=== PATIENT | male | born 1950 | race Caucasian/White ===

== ENCOUNTER 2018-03-31 13:00 | Outpatient (RCR) | payer MEDICARE, OTHER ==
[~2018-03-31 13:00] MED LIST: AMLODIPINE BESYL5 MG PO; AMOX TR-K CLV1 EAC2 PO; CARISOPRODOL350 MG PO; CLOPIDOGREL75 MG PO; HYDROCODON-ACE1 EAC3 PO; LEVOCETIRIZINE D5 MG PO; METFORMIN HCL500 MG PO; METOPROLOL SUCC25 MG PO; MICARDIS HCT 81 EAC1 PO; PRAVASTATIN SOD40 MG PO
== END 2018-04-01 ==
LOC: PT 13:00
PROVIDERS: ATTEND Psychiatry & Neurology Neurology
DX: G61.81 Chronic inflammatory demyelinating polyneuritis (principal); M24.571 Contracture, right ankle; M62.81 Muscle weakness (generalized); R26.2 Difficulty in walking, not elsewhere classified; R29.6 Repeated falls
CPT/HCPCS: 97110 ×3; 97139; 97140 ×3; 97163; G8978; G8979

== ENCOUNTER → 2018-04-09 | Outpatient (CLI) | payer MEDICARE, OTHER | LOC: NM 10:20 | PROVIDERS: ATTEND Internal Medicine Cardiovascular Disease | DX: I25.119 Atherosclerotic heart disease of native coronary artery with unspecified angina pectoris (principal) | CPT/HCPCS: 78452; 93017; A9502 ==

== ENCOUNTER → 2018-05-02 | Outpatient (RCR) | payer MEDICARE, OTHER ==
[~2018-05-02] MED LIST changes: +REGADENOSON 0.4 MG/5 ML SYR IV ONE
== END ==
LOC: PT 04-04 13:26
PROVIDERS: ATTEND Psychiatry & Neurology Neurology
DX: G61.81 Chronic inflammatory demyelinating polyneuritis (principal); M24.571 Contracture, right ankle; R26.2 Difficulty in walking, not elsewhere classified; R29.6 Repeated falls; M62.81 Muscle weakness (generalized)
CPT/HCPCS: 97110 ×7; 97140 ×7; G8978; G8979

== ENCOUNTER 2018-05-30 13:00 | Outpatient (RCR) | payer MEDICARE, OTHER ==
[~2018-05-30 13:00] MED LIST changes: -REGADENOSON 0.4 MG/5 ML SYR IV ONE
== END 2018-06-01 ==
LOC: PT 13:00
PROVIDERS: ATTEND Psychiatry & Neurology Neurology
DX: G61.81 Chronic inflammatory demyelinating polyneuritis (principal); M24.571 Contracture, right ankle; R26.2 Difficulty in walking, not elsewhere classified; R29.6 Repeated falls; M62.81 Muscle weakness (generalized)
CPT/HCPCS: 97110 ×4; 97116; 97140 ×5; 97164; G8978; G8979 ×2; G8980

== ENCOUNTER 2018-07-14 10:59 | Emergency (ER) | payer MEDICARE, OTHER ==
[~2018-07-14] VITALS: Ht 180.3 cm; Wt 90.7 kg
--- OUTSIDE RECORDS SUMMARY | 2018-07-14 11:02 | XMS REPORT | Clinical Summary ---
Author Author [facility] [employer] [facility] Address Unknown Phone Unavailable Care Team Providers Care Video Software Engineer Name Role Phone PCP Unavailable Allergies Comments Active Allergy Reactions Severity Noted Date hypertension Hydroxyzine Hcl Other (See Medium 05/23/2018 Comments) myalgia Atorvastatin Other (See Medium 05/23/2018 Comments) Medications End Date Status Medication Sig Dispensed Refills Start Date Active glimepiride (AMARYL) 4 MG Take 4 mg by 0 tablet mouth 2 (two) times daily. Active metFORMIN (GLUCOPHAGE) Take 1,000 mg 0 1000 MG tablet by mouth 2 (two) times daily with breakfast and dinner. Active clopidogrel (PLAVIX) 75 Take 75 mg by 0 mg tablet mouth daily. Active pravastatin (PRAVACHOL) Take 80 mg by 0 40 MG tablet mouth nightly . Active amLODIPine (NORVASC) 5 MG Take 5 mg by 0 tablet mouth nightly . Active metoprolol (TOPROL-XL) 25 Take 25 mg by 0 MG 24 hr tablet mouth 2 (two) times daily. Active gabapentin (NEURONTIN) Take 300 mg 0 300 MG capsule by mouth 4 (four) times daily. Active traMADol (ULTRAM) 50 mg Take 100 mg 0 tablet by mouth 2 (two) times daily . Active carisoprodol (SOMA) 350 Take 350 mg 0 MG tablet by mouth 2 (two) times daily as needed . Active levocetirizine (XYZAL) 5 Take 5 mg by 0 MG tablet mouth every evening. Active immun glob G/gly/gluc/IgA Inject 0 0-50 (GAMMAGARD S-D, IGA intravenously < 1 MCG/ML, IV) every 3 (three) months . Active Problems Problem Noted Date CAD (coronary artery disease) 05/27/2018 Carotid stenosis 05/27/2018 Resolved Problems Problem Noted Date Resolved Date MONIK (renal artery stenosis) 05/27/2018 05/28/2018 Encounters Care Team Description Date Type Specialty Timothy Childers MD L CATH & PCI 05/27/2018 Surgery Timothy Childers MD 05/27/2018 Hospital Cardiology - Encounter 05/28/2018 after 07/13/2017 Social History Date Tobacco Use Types Packs/Day Years Used Current Every Day Smoker 0.5 Smokeless Tobacco: Former Chew, Snuff User Comments: Quit chew/snuff 30 years ago Alcohol Use Drinks/Week oz/Week Comments Yes Very Rarely, once every few years Sex Assigned at Date Recorded Not on file Industry Job Start Date Occupation Not on file Not on file Not on file Travel End Travel History Travel Start No recent travel history available. Last Filed Vital Signs Time Taken Vital Sign Reading 05/28/2018 8:00 AM CDT Blood Pressure 136/65 05/28/2018 8:00 AM CDT Pulse 63 05/28/2018 8:00 AM CDT Temperature 36.7 C (98 F) 05/28/2018 8:00 AM CDT Respiratory Rate 18 05/28/2018 8:00 AM CDT Oxygen Saturation 95% - Inhaled Oxygen - Concentration 05/28/2018 8:00 AM CDT Weight 87.6 kg (193 lb 1.6 oz) 05/27/2018 11:35 AM CDT Height 177.8 cm (5' 10") 05/28/2018 8:00 AM CDT Body Mass Index 27.71 Plan of Treatment Not on file Implants Device Identifier Shelf Expiration Date Model / Serial / Lot Implanted Type Area [facility] [id number] 10/28/2018 [id number] / / [id number] Promus Premier Cardiovasc N/A: Heart [place] Implanted: Qty: 1 on 05/27/2018 by Timothy Elliott MD [id number] 03/15/2019 [id number] / / [id number] Promus Premier Cardiovasc N/A: Heart [place] Implanted: Qty: 1 on 05/27/2018 by Timothy Elliott MD Procedures Comments Procedure Name Priority Date/Time Associated Diagnosis VASCULAR DIAGRAM -SCAN 05/29/2018 1:30 PM CDT REPORT OF PROCEDURE - 05/29/2018 ENDOSCOPY SCAN 1:30 PM CDT VASCULAR DIAGRAM -SCAN 05/29/2018 1:30 PM CDT VASCULAR DIAGRAM -SCAN 05/29/2018 1:30 PM CDT VASCULAR DIAGRAM -SCAN 05/29/2018 1:30 PM CDT RHYTHM STRIP - SCAN 05/29/2018 1:30 PM CDT CARDIAC CATH REPORT - 05/29/2018 SCAN 1:30 PM CDT POCT-GLUCOSE METER Routine 05/28/2018 8:02 AM CDT CBC W/PLT COUNT & AUTO Routine 05/28/2018 DIFFERENTIAL 3:43 AM CDT CBC W/PLT COUNT & AUTO Routine 05/28/2018 DIFFERENTIAL 3:43 AM CDT BASIC METABOLIC PANEL (7) Routine 05/28/2018 3:43 AM CDT POCT-GLUCOSE METER Routine 05/27/2018 6:43 PM CDT L CATH & PCI 05/27/2018 Atherosclerosis of [place] 5:38 PM CDT coronary artery with angina pectoris, unspecified whether [place] or transplanted heart (HCC) Case Notes POP6 NONE POSS PCI POCT-ACT Routine 05/27/2018 5:23 PM CDT POCT-GLUCOSE METER Routine 05/27/2018 1:48 PM CDT POCT-GLUCOSE METER Routine 05/27/2018 12:12 PM CDT after 07/13/2017 Results * VASCULAR DIAGRAM -SCAN (05/29/2018 1:30 PM CDT) Only the most recent of 4 results within the time period is included. Narrative Performed At * EKG-SCANNED (05/29/2018 1:30 PM CDT) Narrative Performed At * RHYTHM STRIP - SCAN (05/29/2018 1:30 PM CDT) Narrative Performed At * CARDIAC CATH REPORT - SCAN (05/29/2018 1:30 PM CDT) Narrative Performed At * POC-Glucose meter (05/28/2018 8:02 AM CDT) Only the most recent of 4 results within the time period is included. POC-Glucose Meter 289 (H)Comment: TESTED AT 70 - 110 mg/dL [facility] [address] [facility] [address] Specimen Blood Performing Organization Address City/State/Zipcode Phone Number [place] [phone] [place] [address] [facility] * CBC with platelet count + automated diff (05/28/2018 3:43 AM CDT) WBC 6.6 3.5 - 10.5 K/L [facility] RBC 3.69 (L) 4.63 - 6.08 M/L [facility] Hemoglobin 11.1 (L) 13.7 - 17.5 GM/DL [facility] Hematocrit 33.9 (L) 40.1 - 51.0 % [facility] MCV 91.9 79.0 - 92.2 fL [facility] MCH 30.1 25.7 - 32.2 pg [facility] MCHC 32.7 32.3 - 36.5 GM/DL [facility] RDW 13.8 11.6 - 14.4 % [facility] Platelets 214 150 - 450 K/CU MM [facility] MPV 10.9 9.4 - 12.4 fL [facility] nRBC 0 0 - 0 /100 WBC [facility] % Neutros 62 % [facility] % Lymphs 24 % [facility] % Monos 9 % [facility] % Eos 3 % [facility] % Baso 1 % [facility] # Neutros 4.09 1.78 - 5.38 K/L [facility] # Lymphs 1.60 1.32 - 3.57 K/L [facility] # Monos 0.59 0.30 - 0.82 K/L [facility] # Eos 0.22 0.04 - 0.54 K/L [facility] # Baso 0.07 0.01 - 0.08 K/L [facility] Immature 1 0 - 1 % [facility] Granulocytes-[facility] Specimen Blood - Arm, Left Performing Organization Address City/[facility]/Zipcode Phone Number [address] [address] [facility] * Basic Metabolic Panel (05/28/2018 3:43 AM CDT) Sodium 135 (L) 136 - 145 meq/L [facility] Potassium 4.0 3.5 - 5.1 meq/L [facility] Chloride 101 98 - 107 meq/L [facility] CO2 30 (H) 22 - 29 meq/L [facility] BUN 22 (H) 7 - 21 mg/dL [facility] Creatinine 1.15 0.57 - 1.25 mg/dL [facility] Glucose 272 (H) 70 - 105 mg/dL [facility] Calcium 8.9 8.4 - 10.2 mg/dL [facility] EGFR 63Comment: ESTIMATED GFR IS mL/min/1.73 sq m [facility] NOT ACCURATE CREATININE [facility] CLEARANCE IN PREDICTING GLOMERULAR FILTRATION RATE. ESTIMATED GFR IS NOT APPLICABLE FOR DIALYSIS PATIENTS. Specimen Blood - Arm, Left Performing Organization Address City/State/Zipcode Phone Number [facility] [address] [place] [address] [facility] * POC ACTIVATED CLOTTING TIME (05/27/2018 5:23 PM CDT) Activated Clotting Time 323Comment: TESTED AT [facility] sec [facility] [address] [facility] [address] [facility] Specimen Blood Performing Organization Address City/State/Zipcode Phone Number [facility] [address] [place] [address] MEDICAL CENTER after 07/13/2017 Insurance Payer Benefit Subscriber ID Type Phone Address Plan / Group MEDICARE MEDICARE A xxxxxxxxxxx Medicare B MCR SUPPLEMENT/INDIVIDUAL AETNA xxxxxxxxxx SENIOR SUPPLEMENT [place] Advance Directives For more information, please contact: [address] [address] Date Inactivated Comments Code Status Date Activated 05/28/2018 1:32 PM Full Code 05/27/2018 11:55 AM This code status was determined by: Patient
--- OUTSIDE RECORDS SUMMARY | 2018-07-14 11:02 | XMS REPORT | Clinical Summary ---
Author Author [facility] Address Unknown Phone Unavailable Care Team Providers Care Vehicle Return Associate Name Role Phone Laurie Maravilla MD PCP Allergies No Known Allergies Medications End Date Status Medication Sig Dispensed Refills Start Date Active metFORMIN (GLUCOPHAGE) Take 1,000 mg 0 1,000 mg tablet by mouth 2 (two) times a day with meals. Active metoprolol succinate XL Take 25 mg by 0 (TOPROL-XL) 25 mg 24 hr mouth 2 (two) tablet times a day. Active glimepiride (AMARYL) 4 MG Take 4 mg by 0 tablet mouth 2 (two) times a day. Active Problems Problem Noted Date Gait disorder 05/24/2017 Essential hypertension 04/02/2017 CIDP (chronic inflammatory demyelinating polyneuropathy) 03/28/2017 Hyponatremia 03/24/2017 Fall 03/23/2017 DM type 2, uncontrolled, with neuropathy 03/23/2017 Weakness of both lower extremities 03/22/2017 Family History Medical History Relation Name Comments Hypertension Father Hypertension Mother Hypothyroidism Mother Stroke Mother Hypertension Son Relation Name Status Comments Father Mother multiple strokes, and a family history of HBP Son Social History Date Tobacco Use Types Packs/Day Years Used Started: 03/22/1970 Current Every Day Smoker Cigarettes 0.5 47 Tobacco Cessation: Ready to Quit: No Alcohol Use Drinks/Week oz/Week Comments No Sex Assigned at Date Recorded Not on file Industry Job Start Date Occupation Not on file Not on file Not on file Travel End Travel History Travel Start No recent travel history available. Last Filed Vital Signs Not on file Plan of Treatment Health Maintenance Due Date Last Done Comments DIABETIC RETINAL EYE EXAM 1950 URINE MICROALBUMIN 1960 COLON CANCER SCREENING 2000 SHINGRIX VACCINE (1 of 2) 2000 ZOSTER VACCINE 2010 PNEUMOCOCCAL 12/02/2015 POLYSACCHARIDE VACCINE AGE 65 AND OVER PNEUMOCOCCAL-13 12/02/2015 INFLUENZA VACCINE 04/02/2018 DIABETIC FOOT EXAM 04/04/2018 04/04/2017, 04/04/2017 Implants Device Identifier Shelf Expiration Date Model / Serial / Lot Implanted Type Area Manufactur er Stent, Other Stent, Other Stent, Urology Stent, Urology Results Not on fileafter 07/13/2017 Insurance Payer Benefit Subscriber ID Type Phone Address Plan / Group MEDICARE MEDICARE xxxxxxxxxx Medicare [place] PART A AND B [employer] [place] xxxxxxxxxx Commercial L [employer] Advance Directives Patient has advance care planning documents on file. For more information, devon dhillon contact: Clint Lao [address] [place] [address]
--- OUTSIDE RECORDS SUMMARY | 2018-07-14 11:02 | XMS REPORT ---
Author Author [facility] Address Unknown Phone Unavailable Care Team Providers Care Horse Show Manager Name Role Phone Roro LUU Unavailable Unavailable OVI LUU Unavailable Unavailable Problems This patient has no known problems. Allergies, Adverse Reactions, Alerts This patient has no known allergies or adverse reactions. Medications This patient has no known medications. Results Test Description Test Time Test Comments Text Results Atomic Results Result Comments POCT-GLUCOSE METER 2018-05-28 09:53:00 POC-GLUCOSE METER (BEAKER) (test egzf=9315) 289 mg/dL 70-110 TESTED AT [facility] [address] [place] [address] BASIC METABOLIC [id number] 04:53:00* Test Item Value Reference Range Comments SODIUM (BEAKER) (test fmdv=582) 135 meq/L 136-145 POTASSIUM (BEAKER) (test mvns=469) 4.0 meq/L 3.5-5.1 CHLORIDE (BEAKER) (test blhn=219) 101 meq/L 98-107 CO2 (BEAKER) (test ucbv=473) 30 meq/L 22-29 BLOOD UREA NITROGEN (BEAKER) (test tarm=558) 22 mg/dL 7-21 CREATININE (BEAKER) (test kxne=758) 1.15 mg/dL 0.57-1.25 GLUCOSE RANDOM (BEAKER) (test jxay=184) 272 mg/dL 70-105 CALCIUM (BEAKER) (test msov=909) 8.9 mg/dL 8.4-10.2 EGFR (BEAKER) (test doxq=1040) 63 mL/min/1.73 sq m ESTIMATED GFR IS NOT ACCURATE CREATININE CLEARANCE IN PREDICTING GLOMERULAR FILTRATION RATE. ESTIMATED GFR IS NOT APPLICABLE FOR DIALYSIS PATIENTS. CBC W/PLT COUNT & AUTO [id number] 04:38:00* Test Item Value Reference Range Comments WHITE BLOOD CELL COUNT (BEAKER) (test finr=433) 6.6 K/ L 3.5-10.5 RED BLOOD CELL COUNT (BEAKER) (test buod=561) 3.69 M/ L 4.63-6.08 HEMOGLOBIN (BEAKER) (test qfuc=678) 11.1 GM/DL 13.7-17.5 HEMATOCRIT (BEAKER) (test ajjx=862) 33.9 % 40.1-51.0 MEAN CORPUSCULAR VOLUME (BEAKER) (test eahm=426) 91.9 fL 79.0-92.2 MEAN CORPUSCULAR HEMOGLOBIN (BEAKER) (test ljrm=433) 30.1 pg 25.7-32.2 MEAN CORPUSCULAR HEMOGLOBIN CONC (BEAKER) (test bfmf=741) 32.7 GM/DL 32.3-36.5 RED CELL DISTRIBUTION WIDTH (BEAKER) (test ymyb=511) 13.8 % 11.6-14.4 PLATELET COUNT (BEAKER) (test tscu=201) 214 K/CU MM 150-450 MEAN PLATELET VOLUME (BEAKER) (test jvzz=829) 10.9 fL 9.4-12.4 NUCLEATED RED BLOOD CELLS (BEAKER) (test ieqh=695) 0 /100 WBC 0-0 NEUTROPHILS RELATIVE PERCENT (BEAKER) (test kzpw=449) 62 % LYMPHOCYTES RELATIVE PERCENT (BEAKER) (test mcqz=270) 24 % MONOCYTES RELATIVE PERCENT (BEAKER) (test limj=248) 9 % EOSINOPHILS RELATIVE PERCENT (BEAKER) (test rncb=414) 3 % BASOPHILS RELATIVE PERCENT (BEAKER) (test wfgu=812) 1 % NEUTROPHILS ABSOLUTE COUNT (BEAKER) (test btrn=148) 4.09 K/ L 1.78-5.38 LYMPHOCYTES ABSOLUTE COUNT (BEAKER) (test jknd=080) 1.60 K/ L 1.32-3.57 MONOCYTES ABSOLUTE COUNT (BEAKER) (test anen=604) 0.59 K/ L 0.30-0.82 EOSINOPHILS ABSOLUTE COUNT (BEAKER) (test nicz=625) 0.22 K/ L 0.04-0.54 BASOPHILS ABSOLUTE COUNT (BEAKER) (test haea=611) 0.07 K/ L 0.01-0.08 IMMATURE GRANULOCYTES-RELATIVE PERCENT (BEAKER) (test fwyo=6960) 1 % 0-1 POCT-GLUCOSE [id number] 22:57:00* Test Item Value Reference Range Comments POC-GLUCOSE METER (BEAKER) (test wmof=8242) 147 mg/dL 70-110 TESTED AT [address] [address] [id number] 17:31:00* Test Item Value Reference Range Comments ACTIVATED CLOTTING TIME (BEAKER) (test nvlz=264) 323 sec TESTED AT [address] [address] POCT-GLUCOSE [id number] 13:50:00* Test Item Value Reference Range Comments POC-GLUCOSE METER (BEAKER) (test scqk=9525) 292 mg/dL 70-110 TESTED AT [address] [address] POCT-GLUCOSE [id number] 12:14:00* Test Item Value Reference Range Comments POC-GLUCOSE METER (BEAKER) (test ryhu=3131) 328 mg/dL 70-110 TESTED AT [address] [address] Stress Test - Treadmill [id number] 11:56:00 [place] [address] Patient Name : PRANAV TORIBIO MR #: [id number] : 1950 Age/Sex: 67/M Adm Physician : OVI LUU MD Admit Date : Location : [place] Room/Bed : REPORT: Cardiology Report DATE OF STUDY: April 09, 2018 NUCLEAR GATED MYOCARDIAL PERFUSION SCAN Thank you, Ck Luu, for this nuclear interpretation consultation. A nuclear g ated myocardial perfusion scan performed as per protocol at [facility]. Dr. Ovi Luu supervised the test. Lexiscan injected 0.4 mg intravenously as a stress agent, and Cardiolite injected 10 mCi for r esting protocol and 31 mCi for stress protocol. IMPRESSION 1. The left ve ntricular ejection fraction is 60%. 2. No ischemia or scar noted. 3. Erin l study. Job#: [id number] EV Signature Date Dictated By: MARY KYLE MD Transcribed By: SMEDS on 04/18/18 <Electronically signed by MARY KYLE MD><<Signature on File>>05/02/181952 COPY TO:
[2018-07-14] MEDS ORDERED: KETOROLAC TROMETHAMINE 30 MG/ML VIAL IV STA (11:40)
[2018-07-14] MEDS ORDERED: SODIUM CHLORIDE 0.9% 1000ML 1,000 ML IV STA (11:40)
[2018-07-14 11:54] LABS: BASOPHILS # (AUTO) 0.1 (0.0-0.1); BASOPHILS % 0.6 % (0.0-1.0); EOSINOPHILS % 0.2 % (0.0-6.0); HEMATOCRIT 41.5 % (38.2-49.6); HEMOGLOBIN 14.1 g/dL (14.0-18.0); LYMPHOCYTES # (AUTO) 0.6 (1.0-3.2); LYMPHOCYTES % 4.5 % (18.0-39.1); MEAN CORPUSCULAR HEMOGLOBIN 30.2 pg (28-32); MEAN CORPUSCULAR VOLUME 88.9 fL (81-99); MONOCYTES # (AUTO) 0.4 (0.2-0.8); MONOCYTES % 2.6 % (4.4-11.3); NEUTROPHILS # (AUTO) 12.1 (2.1-6.9); NEUTROPHILS % 91.6 % (38.7-80.0); PLATELET COUNT 290 x10e3/uL (140-360); RED BLOOD COUNT 4.67 x10e6/uL (4.3-5.7); RED CELL DISTRIBUTION WIDTH 13.5 % (11.7-14.4)
[2018-07-14 12:20] LABS: ALBUMIN 3.6 g/dL (3.5-5.0); ALBUMIN/GLOBULIN RATIO 0.7 (0.8-2.0); ANION GAP 18.9 mmol/L (8-16); CALCIUM 9.1 mg/dL (8.4-10.2); CREATININE, SERUM 1.49 mg/dL (0.72-1.25); POTASSIUM 5.9 mmol/L (3.5-5.1)
[2018-07-14 12:34] LABS: CLARITY,URINE SL CLOUDY (CLEAR); COLOR,URINE YELLOW (YELLOW); LEUKOCYTE ESTERASE ,URINE NEGATIVE (NEGATIVE); NITRITE,URINE NEGATIVE (NEGATIVE); PROTEIN,URINE DIPSTICK 2+ (NEGATIVE)
[2018-07-14 12:35] LABS: BILIRUBIN,URINE NEGATIVE (NEGATIVE); KETONES,URINE 1+ (NEGATIVE); URINE UROBILINOGEN 0.2 mg/dL (0.2 - 1)
[2018-07-14 12:44] LABS: BACTERIA,URINE FEW /HPF; EPITHELIAL CELLS,URINE RARE /LPF; RBC,URINE >50 /HPF (0-5); WBC,URINE (MAN) 0-5 /HPF (0-5)
[2018-07-14] MEDS ORDERED: INSULIN REGULAR, HUMAN 100 UNIT/1 ML 3ML VIAL IV ONE (13:15)
[2018-07-14] MEDS ORDERED: SOD POLYSTYRENE SULFONATE SUSP 15 GM/60 ML BTL PO ONE (13:30)
[2018-07-14] MEDS ORDERED: ONDANSETRON HCL INJ 2 MG/ML VIAL IV ONE (14:05)
[2018-07-14] MEDS ORDERED: HYDROMORPHONE 2MG/ML 2 MG/ML ML IV ONE (14:15)
--- NOTE | 2018-07-14 14:35 | Diagnostic Imaging Report ---
EXAM: CT Abdomen and Pelvis WITHOUT contrast INDICATION: Right flank pain COMPARISON: None. TECHNIQUE: Abdomen and pelvis were scanned utilizing a multidetector helical scanner from the lung base to the pubic symphysis without administration of IV contrast. Absence of intravenous contrast decreases sensitivity for detection of focal lesions and vascular pathology. Coronal and sagittal reformations were obtained. Routine protocol was performed. RADIATION DOSE: Total DLP: 530 mGy*cm Estimated effective dose: (DLP x 0.015 x size factor) mSv COMPLICATIONS: None FINDINGS: LINES and TUBES: None. LOWER THORAX: Patchy dependent atelectasis. Coronary atherosclerosis. There is a 2 mm solid thyroid nodule in the left lower lobe on series 189, image 25. HEPATOBILIARY: No focal hepatic lesions. No biliary ductal dilation. GALLBLADDER: No radio-opaque stones or sludge. No wall thickening. SPLEEN: No splenomegaly. PANCREAS: No focal masses or ductal dilatation. ADRENALS: Mildly thick walled adrenal glands, left greater than right, without discrete nodule. KIDNEYS/URETERS: Bilateral kidneys have a horizontal rotation. There is right perinephric stranding. Mild right hydronephrosis with dilation of the renal pelvis but decompressed proximal ureter. No definite obstructing stone is visualized. Lack of contrast limits evaluation for mass. Punctate 2 mm nonobstructive right mid pole renal stone on series 199, image 78 and nonobstructive 2 mm right lower pole stone on image 92. Subcentimeter right mid pole hypodensities too small to characterize, but likely represents a cyst. The left kidney appears atrophic. Subcentimeter renal hypodensities are too small to characterize likely represent cysts. There is an 8 mm left mid pole hyperdense lesion measuring 100 Hounsfield units, likely hemorrhagic cyst. GI TRACT: No abnormal distention, wall thickening, or evidence of bowel obstruction. Appendix is normal. PELVIC ORGANS/BLADDER: Punctate 2 mm calcification likely within the bladder near the right UVJ on series 199, image 169. Mildly thick-walled bladder, which may reflect underdistention. LYMPH NODES: No lymphadenopathy. VESSELS: Extensive atherosclerotic calcifications of the abdominal aorta and branch vessels. PERITONEUM / RETROPERITONEUM: No free air. Small amount of right perinephric free fluid. BONES: No acute bony findings. Degenerative changes of the visualized spine. SOFT TISSUES: Fat-containing right inguinal hernia. IMPRESSION: Likely 2 mm stone in the bladder near the right UVJ with mild right hydronephrosis and perinephric stranding. Findings likely represent recent passage of right ureteral stone into the bladder. Punctate 2 mm non-obstructive right renal stones. Signed by: Dr. Napoleon Gong MD on 07/14/2018 2:31 PM
[2018-07-14 15:46] LABS: ANION GAP 19.9 mmol/L (8-16); BLOOD UREA NITROGEN 20 mg/dL (7-26); BUN/CREATININE RATIO 17 (6-25); CALCIUM 8.6 mg/dL (8.4-10.2); CARBON DIOXIDE 23 mmol/L (22-29); CHLORIDE 99 mmol/L (98-107); CREATININE, SERUM 1.17 mg/dL (0.72-1.25); EST GLOMERULAR FILTRATION RATE > 60 ML/MIN (60-); GLUCOSE 320 mg/dL (74-118); POTASSIUM 3.9 mmol/L (3.5-5.1); SODIUM 138 mmol/L (136-145)
== END 2018-07-14 16:30 | disposition home or self-care (01) ==
LOC: ER 10:59
DX: R10.31 Right lower quadrant pain (principal); M54.5 Low back pain; R11.0 Nausea; R31.9 Hematuria, unspecified; N13.2 Hydronephrosis with renal and ureteral calculous obstruction; E87.5 Hyperkalemia
CPT/HCPCS: 36415; 74176; 80048; 80053; 81001; 82150; 83690; 85025; 87086; 93005; 99284; J1170; J1817; J1885; J2405; J7030

== ENCOUNTER → 2019-01-16 | Outpatient (CLI) | payer MEDICARE, OTHER ==
[~2019-01-16] MED LIST changes: +IOPAMIDOL 370 MG/ML 200 ML INFUS..BTL INJ ONE; +SODIUM CHLORIDE 0.9% 100 ML 100 ML ONE; +SODIUM CHLORIDE 0.9% 250ML 250 ML ONE; +SODIUM CHLORIDE 0.9% 500ML 500 ML ONE
[2019-01-16 10:43] LABS: CREATININE, SERUM 1.43 mg/dL (0.72-1.25)
[2019-01-16 11:04] LABS: ANION GAP 14.1 mmol/L (8-16); CALCIUM 9.8 mg/dL (8.4-10.2); CREATININE, SERUM 1.42 mg/dL (0.72-1.25); POTASSIUM 4.1 mmol/L (3.5-5.1)
--- NOTE | 2019-01-16 15:03 | Diagnostic Imaging Report ---
CTA NECK HISTORY: Carotid stenosis COMPARISON: None. TECHNIQUE: CTA of the neck was performed with intravenous iodine based contrast. Coronal, sagittal, 3-D, and oblique maximum intensity projection reformations were created. One or more of the following dose reduction techniques were used: Automated exposure control, adjustment of the mA and/or kV according to patient size, and/or utilization of iterative reconstruction technique. DISCUSSION: If present, any cervical carotid stenosis will be measured as a percentage relative to the benton artery distal to the stenosis (NASCET). There are minimal calcifications in the aortic arch and proximal great vessels. Right Carotid: Moderate calcified plaque at the right carotid bulb causes less than 50% focal stenosis in the proximal right internal carotid artery. Left Carotid: Severe calcified plaque at the left carotid bulb causes up to 70 % focal stenosis in the proximal left internal carotid artery. The upper left cervical internal carotid artery is tortuous. Right vertebral artery: At least mild focal stenosis at the right vertebral artery ostium due to focal calcified plaque. The cervical right vertebral artery is otherwise patent and without abnormality. Left vertebral artery: At least mild focal stenosis at the left vertebral artery ostium due to focal calcified plaque. Mild scattered calcification in the left vertebral artery V2 and V3 segments do not cause significant stenosis. The intracranial arterial vasculature is partially visualized. Mild calcification is seen in the intradural vertebral arteries and carotid siphons. Additional findings: There are mild to moderate degenerative changes throughout the spine. The left mastoid air cells are mildly sclerotic and underpneumatized. IMPRESSION: 1. Severe left carotid bulb calcified plaque causes up to 70% focal stenosis in the proximal left internal carotid artery. 2. Moderate right carotid bulb calcified plaque without significant stenosis (less than 50%). 3. Mild scattered calcified atherosclerosis in the bilateral vertebral arteries. Signed by: Dr. Kike Roldan M.D. on 01/16/2019 3:00 PM
== END ==
LOC: CT 09:43
PROVIDERS: ATTEND Internal Medicine Cardiovascular Disease
DX: G45.9 Transient cerebral ischemic attack, unspecified (principal); I65.8 Occlusion and stenosis of other precerebral arteries
CPT/HCPCS: 36415; 70498; 80048; 82565; 83036; 84152; 84402; 84520; 96360; J7040; J7050; Q9967

== ENCOUNTER → 2019-05-26 | Outpatient (CLI) | payer MEDICARE, OTHER ==
[~2019-05-26] MED LIST changes: -IOPAMIDOL 370 MG/ML 200 ML INFUS..BTL INJ ONE; -SODIUM CHLORIDE 0.9% 100 ML 100 ML ONE; -SODIUM CHLORIDE 0.9% 250ML 250 ML ONE; -SODIUM CHLORIDE 0.9% 500ML 500 ML ONE
--- NOTE | 2019-05-26 15:13 | Diagnostic Imaging Report ---
EXAMINATION: CHEST 2 VIEWS INDICATION: Chronic cough COMPARISON: None FINDINGS: LINES/TUBES:None LUNGS:The lungs are well-inflated. No focal consolidation or pulmonary edema. PLEURA:No pleural effusion or pneumothorax. MEDIASTINUM:The cardiomediastinal silhouette appears normal in size and shape. Atherosclerotic calcifications of the aorta. BONES/SOFT TISSUES:No acute osseous injury. ABDOMEN:No free air under the diaphragm. IMPRESSION: No focal pneumonia or pulmonary edema. Signed by: Franklyn Solomon MD on 05/26/2019 3:09 PM
== END ==
LOC: RAD 14:27
PROVIDERS: ATTEND Internal Medicine
DX: R05 Cough (principal); F17.200 Nicotine dependence, unspecified, uncomplicated
CPT/HCPCS: 71046

== ENCOUNTER 2021-03-15 12:28 | Inpatient (IN) | payer MEDICARE, OTHER ==
[~2021-03-15] VITALS: Ht 180.3 cm; Wt 86.4 kg
[2021-03-15] MEDS ORDERED: MORPHINE SULFATE INJ 4 MG/ML INJ 1ML IV PRN (14:00)
[2021-03-15] MEDS ORDERED: ASPIRIN 81 MG CHEW TAB PO ONE (14:00)
[2021-03-15] MEDS ORDERED: MORPHINE SULFATE INJ 2 MG/ML SYR IV PRN (14:00)
[2021-03-15] MEDS ORDERED: Vancomycin IV 1 GM in SODIUM CHLORIDE 0.9% 250ML 250 ML IV ONE (14:00)
[2021-03-15] MEDS: SODIUM CHLORIDE 0.9% 1000ML 1,000 ML IV SCH ×2 (14:00→22:26)
[2021-03-15] MEDS ORDERED: ONDANSETRON HCL INJ 2MG/ML 2ML 2 MG/ML VIAL IV PRN (14:00)
[2021-03-15 16:13] LABS: BASOPHILS % 0.4 % (0.0-1.0); EOSINOPHILS # (AUTO) 0.4 (0.0-0.4); EOSINOPHILS % 3.2 % (0.0-6.0); HEMATOCRIT 30.8 % (38.2-49.6); HEMOGLOBIN 9.8 g/dL (14.0-18.0); LYMPHOCYTES # (AUTO) 1.7 (1.0-3.2); LYMPHOCYTES % 15.1 % (18.0-39.1); MEAN CORPUSCULAR HEMOGLOBIN 27.5 pg (28-32); MEAN CORPUSCULAR HGB CONC 31.8 g/dL (31-35); MEAN CORPUSCULAR VOLUME 86.3 fL (81-99); MONOCYTES # (AUTO) 0.7 (0.2-0.8); MONOCYTES % 6.1 % (4.4-11.3); NEUTROPHILS # (AUTO) 8.2 (2.1-6.9); NEUTROPHILS % 74.7 % (38.7-80.0); PLATELET COUNT 367 x10e3/uL (140-360); RED BLOOD COUNT 3.57 x10e6/uL (4.3-5.7); RED CELL DISTRIBUTION WIDTH 17.9 % (11.7-14.4)
[2021-03-15 16:35] LABS: CALCIUM 8.2 mg/dL (8.4-10.2)
[2021-03-15 16:50] LABS: ALBUMIN 2.9 g/dL (3.5-5.0); ALBUMIN/GLOBULIN RATIO 0.8 (0.8-2.0); CREATININE, SERUM 1.54 mg/dL (0.72-1.25)
[2021-03-15] MEDS: CLINDAMYCIN 600MG / 50ML 50 ML IV SCH (17:00)
[2021-03-15 17:02] LABS: CREATINE KINASE MB 1.2 ng/mL (0-5.0)
[2021-03-15 18:17] VITALS: BP 147/72
[2021-03-15 19:00] VITALS: BP 156/66
[2021-03-15 19:29] VITALS: BP 147/72
[2021-03-15 20:00] VITALS: BP 156/66
[2021-03-15] MEDS ORDERED: XARELTO10 MG PO (20:15)
[2021-03-15] MEDS ORDERED: SIMETHICONE80 MG PO (20:15)
[2021-03-15] MEDS ORDERED: AMANTADINE100 MG PO (20:15)
[2021-03-15] MEDS ORDERED: FUROSEMIDE40 MG PO (20:15)
[2021-03-15] MEDS ORDERED: TRAZODONE HCL50 MG PO (20:15)
[2021-03-15] MEDS ORDERED: CYMBALTA30 MG (20:15)
[2021-03-15] MEDS ORDERED: ASPIRIN81 MG PO (20:15)
[2021-03-15] MEDS ORDERED: DOCUSATE SODIU100 MG PO (20:15)
[2021-03-15] MEDS ORDERED: ZETIA10 MG PO (20:15)
[2021-03-15] MEDS ORDERED: ZINC-22050 MG PO (20:15)
[2021-03-15] MEDS ORDERED: GABAPENTIN300 MG PO (20:15)
[2021-03-15] MEDS ORDERED: LISINOPRIL10 MG PO (20:15)
[2021-03-15] MEDS ORDERED: ASCORBIC ACID500 M2 PO (20:15)
[2021-03-15] MEDS ORDERED: METHYLPHENIDATE10 MG PO (20:15)
[2021-03-15] MEDS ORDERED: MELATONIN3 MG PO (20:15)
[2021-03-15] MEDS ORDERED: NOVOLIN N100 UNIT/1 ×2 (20:19)
[2021-03-15 23:53] VITALS: BP 135/66
[2021-03-16] VITALS (7 sets, daily range): BP systolic 130–165; BP diastolic 48–69
[2021-03-16] MEDS: CLINDAMYCIN 600MG / 50ML 50 ML IV SCH ×3 (01:10→16:20)
[2021-03-16 05:45] LABS: BASOPHILS % 0.5 % (0.0-1.0); EOSINOPHILS # (AUTO) 0.4 (0.0-0.4); EOSINOPHILS % 4.5 % (0.0-6.0); HEMATOCRIT 28.9 % (38.2-49.6); HEMOGLOBIN 9.1 g/dL (14.0-18.0); LYMPHOCYTES # (AUTO) 1.1 (1.0-3.2); LYMPHOCYTES % 13.4 % (18.0-39.1); MEAN CORPUSCULAR HEMOGLOBIN 27.6 pg (28-32); MEAN CORPUSCULAR HGB CONC 31.5 g/dL (31-35); MEAN CORPUSCULAR VOLUME 87.6 fL (81-99); MONOCYTES # (AUTO) 0.6 (0.2-0.8); MONOCYTES % 6.5 % (4.4-11.3); NEUTROPHILS # (AUTO) 6.4 (2.1-6.9); NEUTROPHILS % 74.6 % (38.7-80.0); PLATELET COUNT 336 x10e3/uL (140-360); RED CELL DISTRIBUTION WIDTH 17.8 % (11.7-14.4)
[2021-03-16] MEDS: SODIUM CHLORIDE 0.9% 1000ML 1,000 ML IV SCH ×3 (05:53→23:07)
[2021-03-16 06:23] LABS: ALBUMIN 2.7 g/dL (3.5-5.0); ALBUMIN/GLOBULIN RATIO 0.6 (0.8-2.0); CALCIUM 8.7 mg/dL (8.4-10.2); CREATININE, SERUM 1.23 mg/dL (0.72-1.25)
[2021-03-16 06:50] LABS: CREATINE KINASE MB 1.7 ng/mL (0-5.0)
[2021-03-16] MEDS ORDERED: DEXTROSE 50% SYRINGE 50 ML IV PRN (07:15)
[2021-03-16] MEDS: INSULIN LISPRO 100 UNIT/1 ML 3ML VIAL SQ SCH ×4 (07:59→21:00)
[2021-03-16] MEDS ORDERED: RIVAROXABAN 10 MG TABLET PO SCH (09:00)
[2021-03-16] MEDS ORDERED: BALSAM PERU/CASTOR OIL 60 GM OINT...G. TP SCH (09:00)
[2021-03-16] MEDS ORDERED: MUPIROCIN 2% OINT 22 GM TUBE TOP SCH (09:00)
[2021-03-16] MEDS: ASPIRIN 81 MG CHEW TAB PO SCH (09:21)
[2021-03-16] MEDS: DULOXETINE HCL 30 MG DELAYED RELEASE PEG SCH (09:21)
[2021-03-16] MEDS: SIMETHICONE 80 MG CHEW PO SCH ×3 (09:22→21:00)
[2021-03-16] MEDS: LISINOPRIL 10 MG TAB PO SCH (09:22)
[2021-03-16] MEDS: FUROSEMIDE 20 MG TAB PO SCH (09:22)
[2021-03-16] MEDS: TRAZODONE HCL 50 MG TAB PO SCH (09:22)
[2021-03-16] MEDS: AMLODIPINE BESYLATE 5 MG TAB PO SCH (09:22)
[2021-03-16] MEDS: DOCUSATE SODIUM 100 MG CAP PO SCH ×2 (09:22→16:20)
[2021-03-16] MEDS: GABAPENTIN 300 MG CAP PO SCH ×2 (09:22→16:20)
[2021-03-16] MEDS: METHYLPHENIDATE HCL 10 MG TAB PO SCH ×2 (09:23→16:20)
[2021-03-16] MEDS: ZINC SULFATE 220 MG CAP PO SCH (09:23)
[2021-03-16] MEDS: AMANTADINE HCL 100 MG CAP PO SCH (09:23)
[2021-03-16] MEDS: ASCORBIC ACID 500 MG TAB PO SCH (09:23)
[2021-03-16] MEDS: EZETIMIBE 10 MG TAB PO SCH (09:23)
[2021-03-16 12:22] LABS: % IRON SATURATION 24 % (15-50); IRON 47 ug/dL (65-175); TOTAL IRON BINDING CAPACITY 192 ug/dL (261-478); TRANSFERRIN 137 mg/dL (174-364)
[2021-03-16 14:12] LABS: CREATINE KINASE MB 1.8 ng/mL (0-5.0)
[2021-03-16] MEDS: METOPROLOL SUCCINATE 25 MG TAB XL PO SCH (21:00)
[2021-03-17] VITALS: BP 127/75
[2021-03-17] MEDS: CLINDAMYCIN 600MG / 50ML 50 ML IV SCH ×3 (01:00→17:00)
[2021-03-17 04:00] VITALS: BP 165/69
[2021-03-17 05:38] LABS: BASOPHILS % 0.5 % (0.0-1.0); EOSINOPHILS # (AUTO) 0.4 (0.0-0.4); EOSINOPHILS % 5.2 % (0.0-6.0); HEMOGLOBIN 8.7 g/dL (14.0-18.0); LYMPHOCYTES # (AUTO) 1.5 (1.0-3.2); LYMPHOCYTES % 18.1 % (18.0-39.1); MEAN CORPUSCULAR HEMOGLOBIN 27.4 pg (28-32); MEAN CORPUSCULAR HGB CONC 31.1 g/dL (31-35); MEAN CORPUSCULAR VOLUME 88.3 fL (81-99); MONOCYTES # (AUTO) 0.6 (0.2-0.8); MONOCYTES % 7.2 % (4.4-11.3); NEUTROPHILS # (AUTO) 5.5 (2.1-6.9); NEUTROPHILS % 68.5 % (38.7-80.0); PLATELET COUNT 326 x10e3/uL (140-360); RED BLOOD COUNT 3.17 x10e6/uL (4.3-5.7); RED CELL DISTRIBUTION WIDTH 17.6 % (11.7-14.4)
[2021-03-17 06:03] LABS: ALBUMIN 2.5 g/dL (3.5-5.0); ALBUMIN/GLOBULIN RATIO 0.6 (0.8-2.0); CALCIUM 8.7 mg/dL (8.4-10.2); CREATININE, SERUM 1.07 mg/dL (0.72-1.25)
[2021-03-17] MEDS: INSULIN LISPRO 100 UNIT/1 ML 3ML VIAL SQ SCH ×4 (07:30→21:50)
[2021-03-17 07:49] VITALS: BP 162/72
[2021-03-17] MEDS: METHYLPHENIDATE HCL 10 MG TAB PO SCH ×2 (09:00→17:00)
[2021-03-17] MEDS: SIMETHICONE 80 MG CHEW PO SCH ×3 (09:00→21:50)
[2021-03-17] MEDS: AMLODIPINE BESYLATE 5 MG TAB PO SCH (09:00)
[2021-03-17] MEDS: FUROSEMIDE 20 MG TAB PO SCH (09:00)
[2021-03-17] MEDS: DULOXETINE HCL 30 MG DELAYED RELEASE PEG SCH (09:00)
[2021-03-17] MEDS: ASCORBIC ACID 500 MG TAB PO SCH (09:00)
[2021-03-17] MEDS: TRAZODONE HCL 50 MG TAB PO SCH (09:00)
[2021-03-17] MEDS: ZINC SULFATE 220 MG CAP PO SCH (09:00)
[2021-03-17] MEDS: DOCUSATE SODIUM 100 MG CAP PO SCH ×2 (09:00→21:50)
[2021-03-17] MEDS: LISINOPRIL 10 MG TAB PO SCH (09:00)
[2021-03-17] MEDS: EZETIMIBE 10 MG TAB PO SCH (09:00)
[2021-03-17] MEDS: GABAPENTIN 300 MG CAP PO SCH ×2 (09:00→17:00)
[2021-03-17] MEDS: AMANTADINE HCL 100 MG CAP PO SCH (09:00)
[2021-03-17] MEDS: ASPIRIN 81 MG CHEW TAB PO SCH (09:00)
[2021-03-17] MEDS ORDERED: HEPARIN SOD/SOD CHLORIDE 2,000 ML ONE (09:17)
[2021-03-17] MEDS ORDERED: MIDAZOLAM HCL 2 MG/2 ML VIAL ONE (09:17)
[2021-03-17] MEDS ORDERED: FENTANYL CITRATE/PF 100MCG/2 ML INJ ONE (09:17)
[2021-03-17] MEDS ORDERED: IOPAMIDOL 300MG/ML 100 ML INFUS..BTL IV ONE (09:17)
[2021-03-17] MEDS ORDERED: LIDOCAINE HCL 2% LOCAL 20 ML VIAL ONE (09:17)
[2021-03-17] MEDS ORDERED: SODIUM CHLORIDE 0.9% 1000ML 1,000 ML ONE (09:18)
[2021-03-17] MEDS ORDERED: IOPAMIDOL 300MG/ML 50ML INFUS..BTL IV ONE (09:19)
[2021-03-17] MEDS: SODIUM CHLORIDE 0.9% 1000ML 1,000 ML IV SCH ×3 (09:45→21:50)
[2021-03-17] MEDS ORDERED: BIVALRIUDIN 250 MG/VIAL VIAL IV ONE (12:22)
[2021-03-17] MEDS ORDERED: SODIUM CHLORIDE 0.9% 50ML 50 ML ONE (12:22)
[2021-03-17] MEDS ORDERED: IRON SUCROSE 100 MG in SODIUM CHLORIDE 0.9% 100 ML 100 ML IV SCH (14:00)
[2021-03-17 14:08] VITALS: BP 173/73
[2021-03-17 20:00] VITALS: BP 165/77
[2021-03-17 21:00] VITALS: BP 165/77
[2021-03-17] MEDS: BALSAM PERU/CASTOR OIL 60 GM OINT...G. TP SCH (21:00)
[2021-03-17] MEDS: METOPROLOL SUCCINATE 25 MG TAB XL PO SCH (21:50)
[2021-03-17] MEDS: IRON SUCROSE 100 MG in SODIUM CHLORIDE 0.9% 100 ML 100 ML IV SCH (21:50)
[2021-03-17] MEDS: MUPIROCIN 2% OINT 22 GM TUBE TOP SCH (21:50)
[2021-03-18] VITALS (7 sets, daily range): BP systolic 103–156; BP diastolic 61–82
[2021-03-18] MEDS: CLINDAMYCIN 600MG / 50ML 50 ML IV SCH ×3 (01:25→16:14)
[2021-03-18] MEDS ORDERED: LORAZEPAM INJ 2 MG/ML VIAL IV ONE (04:45)
[2021-03-18] MEDS: SODIUM CHLORIDE 0.9% 1000ML 1,000 ML IV SCH ×3 (06:00→21:40)
[2021-03-18 06:02] LABS: INR 1.13; PROTHROMBIN TIME 15.2 seconds (11.9-14.5)
[2021-03-18 06:03] LABS: PARTIAL THROMBOPLASTIN TIME 35.7 seconds (23.8-35.5)
[2021-03-18] MEDS: TRAZODONE HCL 50 MG TAB PO SCH (08:20)
[2021-03-18] MEDS: INSULIN LISPRO 100 UNIT/1 ML 3ML VIAL SQ SCH ×4 (08:20→21:40)
[2021-03-18] MEDS: DOCUSATE SODIUM 100 MG CAP PO SCH ×2 (08:20→21:40)
[2021-03-18] MEDS: DULOXETINE HCL 30 MG DELAYED RELEASE PEG SCH (08:20)
[2021-03-18] MEDS: ASPIRIN 81 MG CHEW TAB PO SCH (08:20)
[2021-03-18] MEDS: SIMETHICONE 80 MG CHEW PO SCH ×3 (08:21→21:40)
[2021-03-18] MEDS: LISINOPRIL 10 MG TAB PO SCH (08:22)
[2021-03-18] MEDS: AMLODIPINE BESYLATE 5 MG TAB PO SCH (08:22)
[2021-03-18] MEDS: GABAPENTIN 300 MG CAP PO SCH ×2 (08:22→16:15)
[2021-03-18] MEDS: CLOPIDOGREL BISULFATE 75 MG TAB PO SCH (08:22)
[2021-03-18] MEDS: ASCORBIC ACID 500 MG TAB PO SCH (08:23)
[2021-03-18] MEDS: METHYLPHENIDATE HCL 10 MG TAB PO SCH ×2 (08:23→16:16)
[2021-03-18] MEDS: AMANTADINE HCL 100 MG CAP PO SCH (08:23)
[2021-03-18] MEDS: EZETIMIBE 10 MG TAB PO SCH (08:23)
[2021-03-18] MEDS: ZINC SULFATE 220 MG CAP PO SCH (08:24)
[2021-03-18] MEDS: FUROSEMIDE 20 MG TAB PO SCH (08:26)
[2021-03-18] MEDS: METOPROLOL SUCCINATE 25 MG TAB XL PO SCH (21:40)
[2021-03-18] MEDS: IRON SUCROSE 100 MG in SODIUM CHLORIDE 0.9% 100 ML 100 ML IV SCH (21:40)
[2021-03-18] MEDS: BALSAM PERU/CASTOR OIL 60 GM OINT...G. TP SCH (21:45)
[2021-03-18] MEDS: MUPIROCIN 2% OINT 22 GM TUBE TOP SCH (21:45)
[2021-03-19] VITALS (8 sets, daily range): BP systolic 142–174; BP diastolic 65–91
[2021-03-19] MEDS: CLINDAMYCIN 600MG / 50ML 50 ML IV SCH ×3 (00:49→17:24)
[2021-03-19] MEDS: SODIUM CHLORIDE 0.9% 1000ML 1,000 ML IV SCH ×3 (05:56→22:30)
[2021-03-19] MEDS: TRAZODONE HCL 50 MG TAB PO SCH (08:18)
[2021-03-19] MEDS: ASPIRIN 81 MG CHEW TAB PO SCH (08:18)
[2021-03-19] MEDS: DOCUSATE SODIUM 100 MG CAP PO SCH ×2 (08:18→21:30)
[2021-03-19] MEDS: INSULIN LISPRO 100 UNIT/1 ML 3ML VIAL SQ SCH ×4 (08:18→21:00)
[2021-03-19] MEDS: DULOXETINE HCL 30 MG DELAYED RELEASE PEG SCH (08:18)
[2021-03-19] MEDS: SIMETHICONE 80 MG CHEW PO SCH ×3 (08:18→21:30)
[2021-03-19] MEDS: AMLODIPINE BESYLATE 5 MG TAB PO SCH (08:19)
[2021-03-19] MEDS: GABAPENTIN 300 MG CAP PO SCH ×2 (08:19→17:22)
[2021-03-19] MEDS: LISINOPRIL 10 MG TAB PO SCH (08:20)
[2021-03-19] MEDS: CLOPIDOGREL BISULFATE 75 MG TAB PO SCH (08:20)
[2021-03-19] MEDS: EZETIMIBE 10 MG TAB PO SCH (08:21)
[2021-03-19] MEDS: METHYLPHENIDATE HCL 10 MG TAB PO SCH ×2 (08:21→17:22)
[2021-03-19] MEDS: ASCORBIC ACID 500 MG TAB PO SCH (08:21)
[2021-03-19] MEDS: AMANTADINE HCL 100 MG CAP PO SCH (08:21)
[2021-03-19] MEDS: ZINC SULFATE 220 MG CAP PO SCH (08:22)
[2021-03-19] MEDS: FUROSEMIDE 20 MG TAB PO SCH (08:24)
[2021-03-19] MEDS: IRON SUCROSE 100 MG in SODIUM CHLORIDE 0.9% 100 ML 100 ML IV SCH (20:53)
[2021-03-19] MEDS: BALSAM PERU/CASTOR OIL 60 GM OINT...G. TP SCH (21:30)
[2021-03-19] MEDS: MUPIROCIN 2% OINT 22 GM TUBE TOP SCH (21:30)
[2021-03-19] MEDS: METOPROLOL SUCCINATE 25 MG TAB XL PO SCH (21:30)
[2021-03-20] VITALS (8 sets, daily range): BP systolic 164–183; BP diastolic 61–96
[2021-03-20] MEDS: CLINDAMYCIN 600MG / 50ML 50 ML IV SCH ×3 (01:15→17:02)
[2021-03-20 05:18] LABS: BASOPHILS % 0.4 % (0.0-1.0); EOSINOPHILS # (AUTO) 0.6 (0.0-0.4); EOSINOPHILS % 6.2 % (0.0-6.0); HEMATOCRIT 27.1 % (38.2-49.6); HEMOGLOBIN 8.6 g/dL (14.0-18.0); LYMPHOCYTES # (AUTO) 1.4 (1.0-3.2); MEAN CORPUSCULAR HEMOGLOBIN 27.7 pg (28-32); MEAN CORPUSCULAR HGB CONC 31.7 g/dL (31-35); MEAN CORPUSCULAR VOLUME 87.1 fL (81-99); MONOCYTES # (AUTO) 0.7 (0.2-0.8); MONOCYTES % 7.4 % (4.4-11.3); NEUTROPHILS # (AUTO) 6.3 (2.1-6.9); NEUTROPHILS % 70.3 % (38.7-80.0); PLATELET COUNT 300 x10e3/uL (140-360); RED BLOOD COUNT 3.11 x10e6/uL (4.3-5.7); RED CELL DISTRIBUTION WIDTH 17.7 % (11.7-14.4)
[2021-03-20] MEDS: SODIUM CHLORIDE 0.9% 1000ML 1,000 ML IV SCH ×3 (05:35→23:00)
[2021-03-20 06:02] LABS: ALBUMIN 2.5 g/dL (3.5-5.0); ALBUMIN/GLOBULIN RATIO 0.7 (0.8-2.0); ANION GAP 11.6 mmol/L (8-16); CALCIUM 8.2 mg/dL (8.4-10.2); CREATININE, SERUM 0.84 mg/dL (0.72-1.25); POTASSIUM 3.6 mmol/L (3.5-5.1)
[2021-03-20] MEDS: CLOPIDOGREL BISULFATE 75 MG TAB PO SCH (09:00)
[2021-03-20] MEDS: METHYLPHENIDATE HCL 10 MG TAB PO SCH ×3 (09:00→17:02)
[2021-03-20] MEDS: ASPIRIN 81 MG CHEW TAB PO SCH (09:00)
[2021-03-20] MEDS: INSULIN LISPRO 100 UNIT/1 ML 3ML VIAL SQ SCH ×4 (09:47→21:00)
[2021-03-20] MEDS: LISINOPRIL 10 MG TAB PO SCH (09:53)
[2021-03-20] MEDS: EZETIMIBE 10 MG TAB PO SCH (09:53)
[2021-03-20] MEDS: AMLODIPINE BESYLATE 5 MG TAB PO SCH (09:53)
[2021-03-20] MEDS: AMANTADINE HCL 100 MG CAP PO SCH (09:53)
[2021-03-20] MEDS: ASCORBIC ACID 500 MG TAB PO SCH (09:53)
[2021-03-20] MEDS: DULOXETINE HCL 30 MG DELAYED RELEASE PEG SCH (09:53)
[2021-03-20] MEDS: FUROSEMIDE 20 MG TAB PO SCH (09:53)
[2021-03-20] MEDS: GABAPENTIN 300 MG CAP PO SCH ×3 (09:53→17:02)
[2021-03-20] MEDS: ZINC SULFATE 220 MG CAP PO SCH (09:53)
[2021-03-20] MEDS: SIMETHICONE 80 MG CHEW PO SCH ×3 (09:53→21:13)
[2021-03-20] MEDS: DOCUSATE SODIUM 100 MG CAP PO SCH ×2 (09:53→21:12)
[2021-03-20] MEDS: HYDROCODONE/APAP 5MG-325MG TAB PO PRN (15:00)
[2021-03-20] MEDS ORDERED: DOXAZOSIN MESYLA2 MG PO (19:11)
[2021-03-20] MEDS ORDERED: HYDROCODON-ACE1 EA11 PO (19:13)
[2021-03-20] MEDS: IRON SUCROSE 100 MG in SODIUM CHLORIDE 0.9% 100 ML 100 ML IV SCH (21:12)
[2021-03-20] MEDS: TRAZODONE HCL 50 MG TAB PO SCH (21:12)
[2021-03-20] MEDS: METOPROLOL SUCCINATE 25 MG TAB XL PO SCH (21:13)
[2021-03-20] MEDS: GABAPENTIN 400 MG CAP PO SCH (21:13)
[2021-03-20] MEDS: ATORVASTATIN 20 MG TAB PO SCH (21:13)
[2021-03-20] MEDS: MELATONIN 3 MG TAB PO SCH (21:13)
[2021-03-20] MEDS: MUPIROCIN 2% OINT 22 GM TUBE TOP SCH (21:13)
[2021-03-20] MEDS: BALSAM PERU/CASTOR OIL 60 GM OINT...G. TP SCH (21:14)
[2021-03-21] VITALS (8 sets, daily range): BP systolic 143–173; BP diastolic 65–76
[2021-03-21] MEDS: CLINDAMYCIN 600MG / 50ML 50 ML IV SCH ×3 (01:00→16:55)
[2021-03-21] MEDS ORDERED: BETAMETHASONE DISODIUM PHOS 6 MG/ML VIAL ONE (06:51)
[2021-03-21] MEDS ORDERED: BUPIVACAINE HCL 0.5% INJ 30 ML VIAL INJ ONE (06:51)
[2021-03-21] MEDS ORDERED: LIDOCAINE HCL 1% LOCAL INJ 20 ML VIAL ONE (06:51)
[2021-03-21] MEDS ORDERED: FENTANYL CITRATE/PF 100MCG/2 ML INJ ONE (06:59)
[2021-03-21] MEDS ORDERED: MUPIROCIN 2% OINT 22 GM TUBE ONE (07:28)
[2021-03-21] MEDS: FUROSEMIDE 20 MG TAB PO SCH (09:00)
[2021-03-21] MEDS: SIMETHICONE 80 MG CHEW PO SCH ×3 (09:00→21:00)
[2021-03-21] MEDS: DOCUSATE SODIUM 100 MG CAP PO SCH ×2 (09:00→21:00)
[2021-03-21] MEDS: DOXAZOSIN MESYLATE 2 MG TAB PO SCH ×2 (09:00→16:56)
[2021-03-21] MEDS: LISINOPRIL 10 MG TAB PO SCH (09:00)
[2021-03-21] MEDS: ASCORBIC ACID 500 MG TAB PO SCH (09:00)
[2021-03-21] MEDS: METHYLPHENIDATE HCL 10 MG TAB PO SCH ×2 (09:00→16:56)
[2021-03-21] MEDS: AMANTADINE HCL 100 MG CAP PO SCH (09:00)
[2021-03-21] MEDS: ZINC SULFATE 220 MG CAP PO SCH (09:00)
[2021-03-21] MEDS: GABAPENTIN 300 MG CAP PO SCH ×3 (09:00→16:56)
[2021-03-21] MEDS: INSULIN LISPRO 100 UNIT/1 ML 3ML VIAL SQ SCH ×4 (09:00→21:00)
[2021-03-21] MEDS: AMLODIPINE BESYLATE 5 MG TAB PO SCH (09:00)
[2021-03-21] MEDS: DULOXETINE HCL 30 MG DELAYED RELEASE PEG SCH (09:00)
[2021-03-21] MEDS: EZETIMIBE 10 MG TAB PO SCH (09:00)
[2021-03-21] MEDS ORDERED: PROPOFOL IV EMULSION 10 MG/ML 20 ML VIAL ONE (11:54)
[2021-03-21] MEDS ORDERED: LIDOCAINE HCL 2% LOCAL INJ 5 ML SDV VIAL INJ ONE (11:54)
[2021-03-21] MEDS ORDERED: SEVOFLURANE INHAL SOLN 250 ML PEN BTL ONE (11:54)
[2021-03-21] MEDS ORDERED: POVIDONE IODINE 0.05% 0.05 % ML PO ONE (11:54)
[2021-03-21] MEDS ORDERED: ONDANSETRON HCL INJ 2MG/ML 2ML 2 MG/ML VIAL ONE (11:54)
[2021-03-21] MEDS ORDERED: ATROPINE SULFATE 1 MG/ML VIAL ONE (11:54)
[2021-03-21] MEDS: SODIUM CHLORIDE 0.9% 1000ML 1,000 ML IV SCH ×3 (12:58→22:00)
[2021-03-21] MEDS: BALSAM PERU/CASTOR OIL 60 GM OINT...G. TP SCH (21:00)
[2021-03-21] MEDS: ATORVASTATIN 20 MG TAB PO SCH (21:00)
[2021-03-21] MEDS: MUPIROCIN 2% OINT 22 GM TUBE TOP SCH (21:00)
[2021-03-21] MEDS: MELATONIN 3 MG TAB PO SCH (21:00)
[2021-03-21] MEDS: GABAPENTIN 400 MG CAP PO SCH (21:00)
[2021-03-21] MEDS: METOPROLOL SUCCINATE 25 MG TAB XL PO SCH (21:00)
[2021-03-21] MEDS: IRON SUCROSE 100 MG in SODIUM CHLORIDE 0.9% 100 ML 100 ML IV SCH (21:00)
[2021-03-21] MEDS: TRAZODONE HCL 50 MG TAB PO SCH (21:00)
[2021-03-22] VITALS (8 sets, daily range): BP systolic 127–156; BP diastolic 58–71
[2021-03-22] MEDS: CLINDAMYCIN 600MG / 50ML 50 ML IV SCH ×3 (00:57→16:58)
[2021-03-22 05:35] LABS: BASOPHILS % 0.3 % (0.0-1.0); EOSINOPHILS # (AUTO) 0.4 (0.0-0.4); EOSINOPHILS % 4.7 % (0.0-6.0); HEMATOCRIT 23.2 % (38.2-49.6); HEMOGLOBIN 7.2 g/dL (14.0-18.0); LYMPHOCYTES # (AUTO) 1.3 (1.0-3.2); LYMPHOCYTES % 14.7 % (18.0-39.1); MEAN CORPUSCULAR HEMOGLOBIN 27.4 pg (28-32); MEAN CORPUSCULAR VOLUME 88.2 fL (81-99); MONOCYTES # (AUTO) 0.7 (0.2-0.8); MONOCYTES % 7.2 % (4.4-11.3); NEUTROPHILS # (AUTO) 6.6 (2.1-6.9); NEUTROPHILS % 72.7 % (38.7-80.0); PLATELET COUNT 301 x10e3/uL (140-360); RED BLOOD COUNT 2.63 x10e6/uL (4.3-5.7)
[2021-03-22 05:52] LABS: ALBUMIN 2.1 g/dL (3.5-5.0); ALBUMIN/GLOBULIN RATIO 0.7 (0.8-2.0); ANION GAP 8.9 mmol/L (8-16); CREATININE, SERUM 1.01 mg/dL (0.72-1.25); POTASSIUM 3.9 mmol/L (3.5-5.1)
[2021-03-22] MEDS: DULOXETINE HCL 30 MG DELAYED RELEASE PEG SCH (08:40)
[2021-03-22] MEDS: DOXAZOSIN MESYLATE 2 MG TAB PO SCH ×2 (08:41→16:58)
[2021-03-22] MEDS: DOCUSATE SODIUM 100 MG CAP PO SCH ×2 (08:41→22:00)
[2021-03-22] MEDS: GABAPENTIN 300 MG CAP PO SCH ×3 (08:42→16:58)
[2021-03-22] MEDS: SIMETHICONE 80 MG CHEW PO SCH ×3 (08:42→22:00)
[2021-03-22] MEDS: AMLODIPINE BESYLATE 5 MG TAB PO SCH (08:42)
[2021-03-22] MEDS: LISINOPRIL 10 MG TAB PO SCH (08:43)
[2021-03-22] MEDS: AMANTADINE HCL 100 MG CAP PO SCH (08:43)
[2021-03-22] MEDS: ASCORBIC ACID 500 MG TAB PO SCH (08:44)
[2021-03-22] MEDS: EZETIMIBE 10 MG TAB PO SCH (08:44)
[2021-03-22] MEDS: ZINC SULFATE 220 MG CAP PO SCH (08:44)
[2021-03-22] MEDS: METHYLPHENIDATE HCL 10 MG TAB PO SCH ×2 (08:44→16:59)
[2021-03-22] MEDS: HYDROCODONE/APAP 5MG-325MG TAB PO PRN ×2 (09:16→16:59)
[2021-03-22] MEDS: INSULIN LISPRO 100 UNIT/1 ML 3ML VIAL SQ SCH ×4 (09:45→22:00)
[2021-03-22] MEDS: ASPIRIN 81 MG CHEW TAB PO SCH (10:03)
[2021-03-22] MEDS: FUROSEMIDE 20 MG TAB PO SCH (10:03)
[2021-03-22] MEDS: CLOPIDOGREL BISULFATE 75 MG TAB PO SCH (10:03)
[2021-03-22] MEDS: SODIUM CHLORIDE 0.9% 1000ML 1,000 ML IV SCH (12:21)
[2021-03-22] MEDS: IRON SUCROSE 100 MG in SODIUM CHLORIDE 0.9% 100 ML 100 ML IV SCH (21:30)
[2021-03-22] MEDS: TRAZODONE HCL 50 MG TAB PO SCH (22:00)
[2021-03-22] MEDS: MELATONIN 3 MG TAB PO SCH (22:00)
[2021-03-22] MEDS: METOPROLOL SUCCINATE 25 MG TAB XL PO SCH (22:00)
[2021-03-22] MEDS: GABAPENTIN 400 MG CAP PO SCH (22:00)
[2021-03-22] MEDS: ATORVASTATIN 20 MG TAB PO SCH (22:00)
[2021-03-22] MEDS: BALSAM PERU/CASTOR OIL 60 GM OINT...G. TP SCH (22:00)
[2021-03-22] MEDS: MUPIROCIN 2% OINT 22 GM TUBE TOP SCH (22:00)
[2021-03-23] VITALS (8 sets, daily range): BP systolic 131–169; BP diastolic 61–98
[2021-03-23] MEDS: CLINDAMYCIN 600MG / 50ML 50 ML IV SCH ×3 (01:10→17:16)
[2021-03-23] MEDS: SODIUM CHLORIDE 0.9% 1000ML 1,000 ML IV SCH ×2 (01:10→13:17)
[2021-03-23 06:28] LABS: BASOPHILS % 0.2 % (0.0-1.0); EOSINOPHILS # (AUTO) 0.5 (0.0-0.4); EOSINOPHILS % 5.6 % (0.0-6.0); HEMATOCRIT 23.8 % (38.2-49.6); HEMOGLOBIN 7.3 g/dL (14.0-18.0); LYMPHOCYTES # (AUTO) 1.2 (1.0-3.2); LYMPHOCYTES % 14.6 % (18.0-39.1); MEAN CORPUSCULAR HEMOGLOBIN 27.3 pg (28-32); MEAN CORPUSCULAR HGB CONC 30.7 g/dL (31-35); MEAN CORPUSCULAR VOLUME 89.1 fL (81-99); MONOCYTES # (AUTO) 0.6 (0.2-0.8); MONOCYTES % 7.1 % (4.4-11.3); NEUTROPHILS % 71.3 % (38.7-80.0); PLATELET COUNT 278 x10e3/uL (140-360); RED BLOOD COUNT 2.67 x10e6/uL (4.3-5.7); RED CELL DISTRIBUTION WIDTH 18.3 % (11.7-14.4)
[2021-03-23 07:06] LABS: ALBUMIN 2.2 g/dL (3.5-5.0); ALBUMIN/GLOBULIN RATIO 0.6 (0.8-2.0); ANION GAP 8.9 mmol/L (8-16); CALCIUM 8.4 mg/dL (8.4-10.2); CREATININE, SERUM 1.06 mg/dL (0.72-1.25); MAGNESIUM 1.8 MG/DL (1.3-2.1); POTASSIUM 3.9 mmol/L (3.5-5.1)
[2021-03-23] MEDS: DULOXETINE HCL 30 MG DELAYED RELEASE PEG SCH (08:28)
[2021-03-23] MEDS: DOCUSATE SODIUM 100 MG CAP PO SCH ×2 (08:28→22:14)
[2021-03-23] MEDS: ASPIRIN 81 MG CHEW TAB PO SCH (08:29)
[2021-03-23] MEDS: DOXAZOSIN MESYLATE 2 MG TAB PO SCH ×2 (08:29→17:16)
[2021-03-23] MEDS: AMLODIPINE BESYLATE 5 MG TAB PO SCH (08:30)
[2021-03-23] MEDS: CLOPIDOGREL BISULFATE 75 MG TAB PO SCH (08:30)
[2021-03-23] MEDS: LISINOPRIL 10 MG TAB PO SCH (08:30)
[2021-03-23] MEDS: SIMETHICONE 80 MG CHEW PO SCH ×3 (08:30→22:14)
[2021-03-23] MEDS: METHYLPHENIDATE HCL 10 MG TAB PO SCH ×2 (08:30→17:16)
[2021-03-23] MEDS: GABAPENTIN 300 MG CAP PO SCH ×3 (08:30→17:16)
[2021-03-23] MEDS: FUROSEMIDE 20 MG TAB PO SCH (08:31)
[2021-03-23] MEDS: ASCORBIC ACID 500 MG TAB PO SCH (08:31)
[2021-03-23] MEDS: AMANTADINE HCL 100 MG CAP PO SCH (08:31)
[2021-03-23] MEDS: EZETIMIBE 10 MG TAB PO SCH (08:31)
[2021-03-23] MEDS: ZINC SULFATE 220 MG CAP PO SCH (08:31)
[2021-03-23] MEDS: HYDROCODONE/APAP 5MG-325MG TAB PO PRN (08:50)
[2021-03-23] MEDS: INSULIN LISPRO 100 UNIT/1 ML 3ML VIAL SQ SCH ×4 (09:31→20:13)
[2021-03-23] MEDS: GABAPENTIN 400 MG CAP PO SCH (22:14)
[2021-03-23] MEDS: TRAZODONE HCL 50 MG TAB PO SCH (22:14)
[2021-03-23] MEDS: IRON SUCROSE 100 MG in SODIUM CHLORIDE 0.9% 100 ML 100 ML IV SCH (22:14)
[2021-03-23] MEDS: MELATONIN 3 MG TAB PO SCH (22:14)
[2021-03-23] MEDS: ATORVASTATIN 20 MG TAB PO SCH (22:14)
[2021-03-23] MEDS: BALSAM PERU/CASTOR OIL 60 GM OINT...G. TP SCH (22:15)
[2021-03-23] MEDS: METOPROLOL SUCCINATE 25 MG TAB XL PO SCH (22:15)
[2021-03-24] VITALS (8 sets, daily range): BP systolic 117–155; BP diastolic 56–79
[2021-03-24] MEDS: CLINDAMYCIN 600MG / 50ML 50 ML IV SCH ×3 (01:30→18:20)
[2021-03-24] MEDS: SODIUM CHLORIDE 0.9% 1000ML 1,000 ML IV SCH ×2 (02:22→18:20)
[2021-03-24 06:22] LABS: BASOPHILS % 0.3 % (0.0-1.0); EOSINOPHILS # (AUTO) 0.4 (0.0-0.4); EOSINOPHILS % 4.7 % (0.0-6.0); HEMATOCRIT 23.3 % (38.2-49.6); HEMOGLOBIN 7.3 g/dL (14.0-18.0); LYMPHOCYTES # (AUTO) 1.4 (1.0-3.2); LYMPHOCYTES % 16.2 % (18.0-39.1); MEAN CORPUSCULAR HEMOGLOBIN 27.8 pg (28-32); MEAN CORPUSCULAR HGB CONC 31.3 g/dL (31-35); MEAN CORPUSCULAR VOLUME 88.6 fL (81-99); MONOCYTES # (AUTO) 0.6 (0.2-0.8); NEUTROPHILS # (AUTO) 6.2 (2.1-6.9); NEUTROPHILS % 70.8 % (38.7-80.0); PLATELET COUNT 322 x10e3/uL (140-360); RED BLOOD COUNT 2.63 x10e6/uL (4.3-5.7); RED CELL DISTRIBUTION WIDTH 18.7 % (11.7-14.4)
[2021-03-24 06:43] LABS: ALBUMIN 2.3 g/dL (3.5-5.0); ALBUMIN/GLOBULIN RATIO 0.7 (0.8-2.0); ANION GAP 9.9 mmol/L (8-16); CALCIUM 8.4 mg/dL (8.4-10.2); CREATININE, SERUM 1.07 mg/dL (0.72-1.25); POTASSIUM 3.9 mmol/L (3.5-5.1)
[2021-03-24] MEDS: DULOXETINE HCL 30 MG DELAYED RELEASE PEG SCH (08:03)
[2021-03-24] MEDS: ASPIRIN 81 MG CHEW TAB PO SCH (08:03)
[2021-03-24] MEDS: DOCUSATE SODIUM 100 MG CAP PO SCH ×2 (08:04→20:59)
[2021-03-24] MEDS: DOXAZOSIN MESYLATE 2 MG TAB PO SCH ×2 (08:04→18:20)
[2021-03-24] MEDS: SIMETHICONE 80 MG CHEW PO SCH ×3 (08:05→21:00)
[2021-03-24] MEDS: AMLODIPINE BESYLATE 5 MG TAB PO SCH (08:05)
[2021-03-24] MEDS: CLOPIDOGREL BISULFATE 75 MG TAB PO SCH (08:05)
[2021-03-24] MEDS: LISINOPRIL 10 MG TAB PO SCH (08:05)
[2021-03-24] MEDS: GABAPENTIN 300 MG CAP PO SCH ×3 (08:05→18:20)
[2021-03-24] MEDS: METHYLPHENIDATE HCL 10 MG TAB PO SCH ×2 (08:06→18:20)
[2021-03-24] MEDS: AMANTADINE HCL 100 MG CAP PO SCH (08:06)
[2021-03-24] MEDS: ASCORBIC ACID 500 MG TAB PO SCH (08:06)
[2021-03-24] MEDS: EZETIMIBE 10 MG TAB PO SCH (08:06)
[2021-03-24] MEDS: ZINC SULFATE 220 MG CAP PO SCH (08:06)
[2021-03-24] MEDS: FUROSEMIDE 20 MG TAB PO SCH (08:14)
[2021-03-24] MEDS: INSULIN LISPRO 100 UNIT/1 ML 3ML VIAL SQ SCH ×4 (09:21→21:12)
[2021-03-24] MEDS ORDERED: VANCOMYCIN 1GM/NS 250 ML 250 ML IV SCH (17:45)
[2021-03-24] MEDS: HYDROCODONE/APAP 5MG-325MG TAB PO PRN (20:54)
[2021-03-24] MEDS: TRAZODONE HCL 50 MG TAB PO SCH (20:59)
[2021-03-24] MEDS: ATORVASTATIN 20 MG TAB PO SCH (20:59)
[2021-03-24] MEDS: MELATONIN 3 MG TAB PO SCH (20:59)
[2021-03-24] MEDS: Vancomycin IV 1 GM in SODIUM CHLORIDE 0.9% 250ML 250 ML IV SCH (21:00)
[2021-03-24] MEDS: GABAPENTIN 400 MG CAP PO SCH (21:00)
[2021-03-24] MEDS: METOPROLOL SUCCINATE 25 MG TAB XL PO SCH (21:09)
[2021-03-24] MEDS: IRON SUCROSE 100 MG in SODIUM CHLORIDE 0.9% 100 ML 100 ML IV SCH (21:09)
[2021-03-24] MEDS: BALSAM PERU/CASTOR OIL 60 GM OINT...G. TP SCH (21:50)
[2021-03-25] VITALS (7 sets, daily range): BP systolic 127–151; BP diastolic 59–79
[2021-03-25] MEDS: CLINDAMYCIN 600MG / 50ML 50 ML IV SCH ×2 (01:59→09:49)
[2021-03-25] MEDS: SODIUM CHLORIDE 0.9% 1000ML 1,000 ML IV SCH ×2 (07:25→22:03)
[2021-03-25] MEDS: INSULIN LISPRO 100 UNIT/1 ML 3ML VIAL SQ SCH ×4 (08:22→21:42)
[2021-03-25] MEDS: DULOXETINE HCL 30 MG DELAYED RELEASE PEG SCH (09:52)
[2021-03-25] MEDS: ASPIRIN 81 MG CHEW TAB PO SCH (09:52)
[2021-03-25] MEDS: DOXAZOSIN MESYLATE 2 MG TAB PO SCH ×2 (09:53→18:14)
[2021-03-25] MEDS: DOCUSATE SODIUM 100 MG CAP PO SCH ×2 (09:54→21:50)
[2021-03-25] MEDS: SIMETHICONE 80 MG CHEW PO SCH ×3 (09:54→21:55)
[2021-03-25] MEDS: GABAPENTIN 300 MG CAP PO SCH ×3 (09:55→18:14)
[2021-03-25] MEDS: AMLODIPINE BESYLATE 5 MG TAB PO SCH (09:55)
[2021-03-25] MEDS: CLOPIDOGREL BISULFATE 75 MG TAB PO SCH (09:55)
[2021-03-25] MEDS: AMANTADINE HCL 100 MG CAP PO SCH (09:56)
[2021-03-25] MEDS: METHYLPHENIDATE HCL 10 MG TAB PO SCH ×2 (09:56→18:14)
[2021-03-25] MEDS: LISINOPRIL 10 MG TAB PO SCH (09:56)
[2021-03-25] MEDS: ASCORBIC ACID 500 MG TAB PO SCH (09:56)
[2021-03-25] MEDS: EZETIMIBE 10 MG TAB PO SCH (09:57)
[2021-03-25] MEDS: ZINC SULFATE 220 MG CAP PO SCH (09:57)
[2021-03-25] MEDS: FUROSEMIDE 20 MG TAB PO SCH (10:07)
[2021-03-25] MEDS: HYDROCODONE/APAP 5MG-325MG TAB PO PRN (15:10)
[2021-03-25] MEDS: Vancomycin IV 1 GM in SODIUM CHLORIDE 0.9% 250ML 250 ML IV SCH (21:49)
[2021-03-25] MEDS: IRON SUCROSE 100 MG in SODIUM CHLORIDE 0.9% 100 ML 100 ML IV SCH (21:49)
[2021-03-25] MEDS: MELATONIN 3 MG TAB PO SCH (21:55)
[2021-03-25] MEDS: GABAPENTIN 400 MG CAP PO SCH (21:55)
[2021-03-25] MEDS: TRAZODONE HCL 50 MG TAB PO SCH (21:55)
[2021-03-25] MEDS: ATORVASTATIN 20 MG TAB PO SCH (21:55)
[2021-03-25] MEDS: METOPROLOL SUCCINATE 25 MG TAB XL PO SCH (21:56)
[2021-03-25] MEDS: BALSAM PERU/CASTOR OIL 60 GM OINT...G. TP SCH (22:03)
[2021-03-26] VITALS (8 sets, daily range): BP systolic 137–154; BP diastolic 61–75
[2021-03-26 06:25] LABS: BASOPHILS % 0.4 % (0.0-1.0); EOSINOPHILS # (AUTO) 0.4 (0.0-0.4); EOSINOPHILS % 4.9 % (0.0-6.0); HEMATOCRIT 23.9 % (38.2-49.6); HEMOGLOBIN 7.5 g/dL (14.0-18.0); LYMPHOCYTES # (AUTO) 1.7 (1.0-3.2); LYMPHOCYTES % 20.6 % (18.0-39.1); MEAN CORPUSCULAR HEMOGLOBIN 27.9 pg (28-32); MEAN CORPUSCULAR HGB CONC 31.4 g/dL (31-35); MEAN CORPUSCULAR VOLUME 88.8 fL (81-99); MONOCYTES # (AUTO) 0.8 (0.2-0.8); MONOCYTES % 9.3 % (4.4-11.3); NEUTROPHILS # (AUTO) 5.2 (2.1-6.9); NEUTROPHILS % 63.7 % (38.7-80.0); PLATELET COUNT 365 x10e3/uL (140-360); RED BLOOD COUNT 2.69 x10e6/uL (4.3-5.7); RED CELL DISTRIBUTION WIDTH 19.4 % (11.7-14.4)
[2021-03-26 06:55] LABS: ALBUMIN 2.4 g/dL (3.5-5.0); ALBUMIN/GLOBULIN RATIO 0.7 (0.8-2.0); ANION GAP 12.6 mmol/L (8-16); CALCIUM 8.3 mg/dL (8.4-10.2); CREATININE, SERUM 0.94 mg/dL (0.72-1.25); POTASSIUM 3.6 mmol/L (3.5-5.1)
[2021-03-26] MEDS: INSULIN LISPRO 100 UNIT/1 ML 3ML VIAL SQ SCH ×4 (07:30→21:00)
[2021-03-26] MEDS: DOCUSATE SODIUM 100 MG CAP PO SCH ×2 (08:57→20:48)
[2021-03-26] MEDS: ZINC SULFATE 220 MG CAP PO SCH (08:57)
[2021-03-26] MEDS: AMLODIPINE BESYLATE 5 MG TAB PO SCH (08:57)
[2021-03-26] MEDS: CLOPIDOGREL BISULFATE 75 MG TAB PO SCH (08:57)
[2021-03-26] MEDS: FUROSEMIDE 20 MG TAB PO SCH (08:57)
[2021-03-26] MEDS: ASPIRIN 81 MG CHEW TAB PO SCH (08:57)
[2021-03-26] MEDS: GABAPENTIN 300 MG CAP PO SCH ×3 (08:57→16:39)
[2021-03-26] MEDS: SIMETHICONE 80 MG CHEW PO SCH ×3 (08:57→20:50)
[2021-03-26] MEDS: ASCORBIC ACID 500 MG TAB PO SCH (08:57)
[2021-03-26] MEDS: EZETIMIBE 10 MG TAB PO SCH (08:57)
[2021-03-26] MEDS: DULOXETINE HCL 30 MG DELAYED RELEASE PEG SCH (08:57)
[2021-03-26] MEDS: DOXAZOSIN MESYLATE 2 MG TAB PO SCH ×2 (08:57→16:39)
[2021-03-26] MEDS: LISINOPRIL 10 MG TAB PO SCH (08:57)
[2021-03-26] MEDS: AMANTADINE HCL 100 MG CAP PO SCH (08:57)
[2021-03-26] MEDS: METHYLPHENIDATE HCL 10 MG TAB PO SCH ×2 (08:58→16:39)
[2021-03-26] MEDS: Vancomycin IV 1 GM in SODIUM CHLORIDE 0.9% 250ML 250 ML IV SCH (20:48)
[2021-03-26] MEDS: TRAZODONE HCL 50 MG TAB PO SCH (20:49)
[2021-03-26] MEDS: GABAPENTIN 400 MG CAP PO SCH (20:49)
[2021-03-26] MEDS: MELATONIN 3 MG TAB PO SCH (20:49)
[2021-03-26] MEDS: ATORVASTATIN 20 MG TAB PO SCH (20:49)
[2021-03-26] MEDS: METOPROLOL SUCCINATE 25 MG TAB XL PO SCH (20:51)
[2021-03-26] MEDS: IRON SUCROSE 100 MG in SODIUM CHLORIDE 0.9% 100 ML 100 ML IV SCH (21:00)
[2021-03-26] MEDS: BALSAM PERU/CASTOR OIL 60 GM OINT...G. TP SCH (21:00)
[2021-03-26] MEDS: SODIUM CHLORIDE 0.9% 1000ML 1,000 ML IV SCH ×2 (22:40→23:03)
[2021-03-27] VITALS (7 sets, daily range): BP systolic 139–153; BP diastolic 64–71
[2021-03-27] MEDS: ASPIRIN 81 MG CHEW TAB PO SCH (08:46)
[2021-03-27] MEDS: SIMETHICONE 80 MG CHEW PO SCH ×3 (08:47→21:47)
[2021-03-27] MEDS: FUROSEMIDE 20 MG TAB PO SCH (08:47)
[2021-03-27] MEDS: GABAPENTIN 300 MG CAP PO SCH ×3 (08:47→17:10)
[2021-03-27] MEDS: DULOXETINE HCL 30 MG DELAYED RELEASE PEG SCH (08:47)
[2021-03-27] MEDS: DOCUSATE SODIUM 100 MG CAP PO SCH ×2 (08:47→21:47)
[2021-03-27] MEDS: AMLODIPINE BESYLATE 5 MG TAB PO SCH (08:47)
[2021-03-27] MEDS: CLOPIDOGREL BISULFATE 75 MG TAB PO SCH (08:48)
[2021-03-27] MEDS: EZETIMIBE 10 MG TAB PO SCH (08:48)
[2021-03-27] MEDS: LISINOPRIL 10 MG TAB PO SCH (08:48)
[2021-03-27] MEDS: DOXAZOSIN MESYLATE 2 MG TAB PO SCH ×2 (08:48→17:10)
[2021-03-27] MEDS: ASCORBIC ACID 500 MG TAB PO SCH (08:48)
[2021-03-27] MEDS: ZINC SULFATE 220 MG CAP PO SCH (08:48)
[2021-03-27] MEDS: AMANTADINE HCL 100 MG CAP PO SCH (08:48)
[2021-03-27] MEDS: INSULIN LISPRO 100 UNIT/1 ML 3ML VIAL SQ SCH ×4 (09:53→21:48)
[2021-03-27] MEDS: SODIUM CHLORIDE 0.9% 1000ML 1,000 ML IV SCH (11:44)
[2021-03-27] MEDS: Vancomycin IV 1 GM in SODIUM CHLORIDE 0.9% 250ML 250 ML IV SCH (20:06)
[2021-03-27] MEDS: TRAZODONE HCL 50 MG TAB PO SCH (21:47)
[2021-03-27] MEDS: IRON SUCROSE 100 MG in SODIUM CHLORIDE 0.9% 100 ML 100 ML IV SCH (21:47)
[2021-03-27] MEDS: ATORVASTATIN 20 MG TAB PO SCH (21:47)
[2021-03-27] MEDS: GABAPENTIN 400 MG CAP PO SCH (21:47)
[2021-03-27] MEDS: MELATONIN 3 MG TAB PO SCH (21:47)
[2021-03-27] MEDS: METOPROLOL SUCCINATE 25 MG TAB XL PO SCH (21:48)
[2021-03-27] MEDS: BALSAM PERU/CASTOR OIL 60 GM OINT...G. TP SCH (21:49)
[2021-03-28] VITALS (8 sets, daily range): BP systolic 127–169; BP diastolic 61–78
[2021-03-28 06:29] LABS: BASOPHILS % 0.5 % (0.0-1.0); EOSINOPHILS # (AUTO) 0.5 (0.0-0.4); EOSINOPHILS % 5.4 % (0.0-6.0); HEMOGLOBIN 8.1 g/dL (14.0-18.0); LYMPHOCYTES # (AUTO) 1.4 (1.0-3.2); LYMPHOCYTES % 15.8 % (18.0-39.1); MEAN CORPUSCULAR HEMOGLOBIN 28.3 pg (28-32); MEAN CORPUSCULAR HGB CONC 31.2 g/dL (31-35); MEAN CORPUSCULAR VOLUME 90.9 fL (81-99); MONOCYTES # (AUTO) 0.7 (0.2-0.8); MONOCYTES % 8.1 % (4.4-11.3); NEUTROPHILS # (AUTO) 6.1 (2.1-6.9); NEUTROPHILS % 69.5 % (38.7-80.0); PLATELET COUNT 326 x10e3/uL (140-360); RED BLOOD COUNT 2.86 x10e6/uL (4.3-5.7); RED CELL DISTRIBUTION WIDTH 20.1 % (11.7-14.4)
[2021-03-28 07:07] LABS: ALBUMIN 2.3 g/dL (3.5-5.0); ALBUMIN/GLOBULIN RATIO 0.6 (0.8-2.0); ANION GAP 11.6 mmol/L (8-16); CALCIUM 8.3 mg/dL (8.4-10.2); CREATININE, SERUM 1.15 mg/dL (0.72-1.25); POTASSIUM 3.6 mmol/L (3.5-5.1)
[2021-03-28] MEDS: INSULIN LISPRO 100 UNIT/1 ML 3ML VIAL SQ SCH ×5 (07:30→21:11)
[2021-03-28] MEDS: DULOXETINE HCL 30 MG DELAYED RELEASE PEG SCH (09:55)
[2021-03-28] MEDS: DOCUSATE SODIUM 100 MG CAP PO SCH ×2 (09:55→21:20)
[2021-03-28] MEDS: DOXAZOSIN MESYLATE 2 MG TAB PO SCH ×2 (09:55→16:31)
[2021-03-28] MEDS: SIMETHICONE 80 MG CHEW PO SCH ×3 (09:55→21:20)
[2021-03-28] MEDS: GABAPENTIN 300 MG CAP PO SCH ×3 (09:55→16:31)
[2021-03-28] MEDS: ASPIRIN 81 MG CHEW TAB PO SCH (09:55)
[2021-03-28] MEDS: CLOPIDOGREL BISULFATE 75 MG TAB PO SCH (09:56)
[2021-03-28] MEDS: AMLODIPINE BESYLATE 5 MG TAB PO SCH (09:56)
[2021-03-28] MEDS: LISINOPRIL 10 MG TAB PO SCH (09:56)
[2021-03-28] MEDS: AMANTADINE HCL 100 MG CAP PO SCH (09:57)
[2021-03-28] MEDS: EZETIMIBE 10 MG TAB PO SCH (09:57)
[2021-03-28] MEDS: ASCORBIC ACID 500 MG TAB PO SCH (09:57)
[2021-03-28] MEDS: ZINC SULFATE 220 MG CAP PO SCH (09:57)
[2021-03-28] MEDS: SODIUM CHLORIDE 0.9% 1000ML 1,000 ML IV SCH (11:37)
[2021-03-28] MEDS: FUROSEMIDE 20 MG TAB PO SCH (11:37)
[2021-03-28] MEDS: Vancomycin IV 1 GM in SODIUM CHLORIDE 0.9% 250ML 250 ML IV SCH ×2 (19:53→21:10)
[2021-03-28] MEDS: ATORVASTATIN 20 MG TAB PO SCH (21:20)
[2021-03-28] MEDS: MELATONIN 3 MG TAB PO SCH (21:20)
[2021-03-28] MEDS: GABAPENTIN 400 MG CAP PO SCH (21:20)
[2021-03-28] MEDS: TRAZODONE HCL 50 MG TAB PO SCH (21:20)
[2021-03-28] MEDS: BALSAM PERU/CASTOR OIL 60 GM OINT...G. TP SCH (21:21)
[2021-03-28] MEDS: METOPROLOL SUCCINATE 25 MG TAB XL PO SCH (21:21)
[2021-03-28] MEDS: IRON SUCROSE 100 MG in SODIUM CHLORIDE 0.9% 100 ML 100 ML IV SCH (23:50)
[2021-03-29] VITALS (8 sets, daily range): BP systolic 69–162; BP diastolic 58–80
[2021-03-29] MEDS: SODIUM CHLORIDE 0.9% 1000ML 1,000 ML IV SCH ×3 (09:30→21:04)
[2021-03-29] MEDS: Vancomycin IV 1 GM in SODIUM CHLORIDE 0.9% 250ML 250 ML IV SCH ×2 (09:31→20:00)
[2021-03-29] MEDS: DULOXETINE HCL 30 MG DELAYED RELEASE PEG SCH (09:31)
[2021-03-29] MEDS: ASPIRIN 81 MG CHEW TAB PO SCH (09:31)
[2021-03-29] MEDS: INSULIN LISPRO 100 UNIT/1 ML 3ML VIAL SQ SCH ×4 (09:31→20:41)
[2021-03-29] MEDS: AMLODIPINE BESYLATE 5 MG TAB PO SCH (09:32)
[2021-03-29] MEDS: DOCUSATE SODIUM 100 MG CAP PO SCH ×2 (09:32→20:08)
[2021-03-29] MEDS: GABAPENTIN 300 MG CAP PO SCH ×3 (09:32→17:53)
[2021-03-29] MEDS: SIMETHICONE 80 MG CHEW PO SCH ×3 (09:32→20:08)
[2021-03-29] MEDS: CLOPIDOGREL BISULFATE 75 MG TAB PO SCH (09:32)
[2021-03-29] MEDS: FUROSEMIDE 20 MG TAB PO SCH (09:32)
[2021-03-29] MEDS: DOXAZOSIN MESYLATE 2 MG TAB PO SCH ×2 (09:32→17:53)
[2021-03-29] MEDS: AMANTADINE HCL 100 MG CAP PO SCH (09:33)
[2021-03-29] MEDS: ZINC SULFATE 220 MG CAP PO SCH (09:33)
[2021-03-29] MEDS: LISINOPRIL 10 MG TAB PO SCH (09:33)
[2021-03-29] MEDS: ASCORBIC ACID 500 MG TAB PO SCH (09:33)
[2021-03-29] MEDS: EZETIMIBE 10 MG TAB PO SCH (09:33)
[2021-03-29] MEDS: FERROUS SULFATE 325 MG TAB PO SCH (17:53)
[2021-03-29] MEDS: MELATONIN 3 MG TAB PO SCH (20:08)
[2021-03-29] MEDS: ATORVASTATIN 20 MG TAB PO SCH (20:08)
[2021-03-29] MEDS: GABAPENTIN 400 MG CAP PO SCH (20:08)
[2021-03-29] MEDS: TRAZODONE HCL 50 MG TAB PO SCH (20:20)
[2021-03-29] MEDS: METOPROLOL SUCCINATE 25 MG TAB XL PO SCH (20:54)
[2021-03-29] MEDS: BALSAM PERU/CASTOR OIL 60 GM OINT...G. TP SCH (21:00)
[2021-03-30] VITALS (7 sets, daily range): BP systolic 132–180; BP diastolic 65–90
[2021-03-30] MEDS: INSULIN LISPRO 100 UNIT/1 ML 3ML VIAL SQ SCH ×4 (07:30→21:00)
[2021-03-30] MEDS: SODIUM CHLORIDE 0.9% 1000ML 1,000 ML IV SCH (08:52)
[2021-03-30] MEDS: Vancomycin IV 1 GM in SODIUM CHLORIDE 0.9% 250ML 250 ML IV SCH (08:54)
[2021-03-30] MEDS: DULOXETINE HCL 30 MG DELAYED RELEASE PEG SCH (08:55)
[2021-03-30] MEDS: ASPIRIN 81 MG CHEW TAB PO SCH (08:55)
[2021-03-30] MEDS: DOCUSATE SODIUM 100 MG CAP PO SCH ×2 (08:56→21:00)
[2021-03-30] MEDS: DOXAZOSIN MESYLATE 2 MG TAB PO SCH ×2 (08:56→17:18)
[2021-03-30] MEDS: FERROUS SULFATE 325 MG TAB PO SCH ×2 (08:56→17:18)
[2021-03-30] MEDS: SIMETHICONE 80 MG CHEW PO SCH ×3 (08:57→21:00)
[2021-03-30] MEDS: CLOPIDOGREL BISULFATE 75 MG TAB PO SCH (08:58)
[2021-03-30] MEDS: AMLODIPINE BESYLATE 5 MG TAB PO SCH (08:58)
[2021-03-30] MEDS: LISINOPRIL 10 MG TAB PO SCH (08:59)
[2021-03-30] MEDS: EZETIMIBE 10 MG TAB PO SCH (08:59)
[2021-03-30] MEDS: AMANTADINE HCL 100 MG CAP PO SCH (08:59)
[2021-03-30] MEDS: ASCORBIC ACID 500 MG TAB PO SCH (08:59)
[2021-03-30] MEDS: ZINC SULFATE 220 MG CAP PO SCH (09:00)
[2021-03-30] MEDS ORDERED: SODIUM CHLORIDE 0.9% 250ML 250 ML ONE (10:35)
[2021-03-30] MEDS: FUROSEMIDE 20 MG TAB PO SCH (12:13)
[2021-03-30] MEDS: MELATONIN 3 MG TAB PO SCH (21:00)
[2021-03-30] MEDS: TRAZODONE HCL 50 MG TAB PO SCH (21:00)
[2021-03-30] MEDS: METOPROLOL SUCCINATE 25 MG TAB XL PO SCH (21:00)
[2021-03-30] MEDS: ATORVASTATIN 20 MG TAB PO SCH (21:00)
[2021-03-30] MEDS: BALSAM PERU/CASTOR OIL 60 GM OINT...G. TP SCH (21:00)
[2021-03-31] VITALS (8 sets, daily range): BP systolic 142–179; BP diastolic 65–95
[2021-03-31] MEDS: SODIUM CHLORIDE 0.9% 1000ML 1,000 ML IV SCH ×2 (01:20→09:07)
[2021-03-31] MEDS ORDERED: VANCOMYCIN 1GM/NS 250 ML 250 ML IV SCH (08:00)
[2021-03-31] MEDS: Vancomycin IV 1 GM in SODIUM CHLORIDE 0.9% 250ML 250 ML IV SCH (08:56)
[2021-03-31] MEDS: DULOXETINE HCL 30 MG DELAYED RELEASE PEG SCH (08:56)
[2021-03-31] MEDS: DOCUSATE SODIUM 100 MG CAP PO SCH ×2 (08:57→20:56)
[2021-03-31] MEDS: ASPIRIN 81 MG CHEW TAB PO SCH (08:57)
[2021-03-31] MEDS: FERROUS SULFATE 325 MG TAB PO SCH ×2 (08:57→17:21)
[2021-03-31] MEDS: DOXAZOSIN MESYLATE 2 MG TAB PO SCH ×2 (08:57→17:21)
[2021-03-31] MEDS: EZETIMIBE 10 MG TAB PO SCH (08:58)
[2021-03-31] MEDS: AMANTADINE HCL 100 MG CAP PO SCH (08:58)
[2021-03-31] MEDS: SIMETHICONE 80 MG CHEW PO SCH ×3 (08:58→20:56)
[2021-03-31] MEDS: ZINC SULFATE 220 MG CAP PO SCH (08:58)
[2021-03-31] MEDS: AMLODIPINE BESYLATE 5 MG TAB PO SCH (08:58)
[2021-03-31] MEDS: LISINOPRIL 10 MG TAB PO SCH (08:58)
[2021-03-31] MEDS: ASCORBIC ACID 500 MG TAB PO SCH (08:58)
[2021-03-31] MEDS: CLOPIDOGREL BISULFATE 75 MG TAB PO SCH (08:58)
[2021-03-31] MEDS: FUROSEMIDE 20 MG TAB PO SCH (09:07)
[2021-03-31] MEDS: INSULIN LISPRO 100 UNIT/1 ML 3ML VIAL SQ SCH ×4 (10:07→20:54)
[2021-03-31] MEDS ORDERED: HYDROCODONE/APAP 5MG-325MG TAB PO PRN (13:15)
[2021-03-31] MEDS: METOPROLOL SUCCINATE 25 MG TAB XL PO SCH (20:56)
[2021-03-31] MEDS: TRAZODONE HCL 50 MG TAB PO SCH (20:56)
[2021-03-31] MEDS: MELATONIN 3 MG TAB PO SCH (20:56)
[2021-03-31] MEDS: ATORVASTATIN 20 MG TAB PO SCH (20:56)
[2021-03-31] MEDS: BALSAM PERU/CASTOR OIL 60 GM OINT...G. TP SCH (20:58)
[2021-04-01] VITALS: BP 164/96
[2021-04-01 04:00] VITALS: BP 181/77
[2021-04-01] MEDS: SODIUM CHLORIDE 0.9% 1000ML 1,000 ML IV SCH ×2 (05:26→13:15)
[2021-04-01] MEDS: Vancomycin IV 1 GM in SODIUM CHLORIDE 0.9% 250ML 250 ML IV SCH (09:00)
[2021-04-01] MEDS: SIMETHICONE 80 MG CHEW PO SCH ×2 (09:01→16:15)
[2021-04-01] MEDS: FERROUS SULFATE 325 MG TAB PO SCH ×2 (09:01→17:39)
[2021-04-01] MEDS: DOXAZOSIN MESYLATE 2 MG TAB PO SCH ×2 (09:01→17:39)
[2021-04-01] MEDS: AMLODIPINE BESYLATE 5 MG TAB PO SCH (09:01)
[2021-04-01] MEDS: ASPIRIN 81 MG CHEW TAB PO SCH (09:01)
[2021-04-01] MEDS: DOCUSATE SODIUM 100 MG CAP PO SCH (09:01)
[2021-04-01] MEDS: FUROSEMIDE 20 MG TAB PO SCH (09:01)
[2021-04-01] MEDS: DULOXETINE HCL 30 MG DELAYED RELEASE PEG SCH (09:01)
[2021-04-01] MEDS: LISINOPRIL 10 MG TAB PO SCH (09:02)
[2021-04-01] MEDS: AMANTADINE HCL 100 MG CAP PO SCH (09:02)
[2021-04-01] MEDS: ZINC SULFATE 220 MG CAP PO SCH (09:02)
[2021-04-01] MEDS: EZETIMIBE 10 MG TAB PO SCH (09:02)
[2021-04-01] MEDS: ASCORBIC ACID 500 MG TAB PO SCH (09:02)
[2021-04-01 09:08] VITALS: BP 152/74
[2021-04-01 10:00] LABS: BASOPHILS % 0.4 % (0.0-1.0); EOSINOPHILS # (AUTO) 0.1 (0.0-0.4); EOSINOPHILS % 1.3 % (0.0-6.0); HEMATOCRIT 29.6 % (38.2-49.6); HEMOGLOBIN 9.1 g/dL (14.0-18.0); LYMPHOCYTES # (AUTO) 0.7 (1.0-3.2); LYMPHOCYTES % 6.9 % (18.0-39.1); MEAN CORPUSCULAR HEMOGLOBIN 28.1 pg (28-32); MEAN CORPUSCULAR HGB CONC 30.7 g/dL (31-35); MEAN CORPUSCULAR VOLUME 91.4 fL (81-99); MONOCYTES # (AUTO) 0.4 (0.2-0.8); MONOCYTES % 4.3 % (4.4-11.3); NEUTROPHILS # (AUTO) 8.1 (2.1-6.9); PLATELET COUNT 390 x10e3/uL (140-360); RED BLOOD COUNT 3.24 x10e6/uL (4.3-5.7); RED CELL DISTRIBUTION WIDTH 20.3 % (11.7-14.4)
[2021-04-01 10:13] LABS: ALBUMIN 2.7 g/dL (3.5-5.0); ALBUMIN/GLOBULIN RATIO 0.7 (0.8-2.0); ANION GAP 13.7 mmol/L (8-16); CALCIUM 8.6 mg/dL (8.4-10.2); CREATININE, SERUM 1.03 mg/dL (0.72-1.25); POTASSIUM 3.7 mmol/L (3.5-5.1)
[2021-04-01] MEDS: INSULIN LISPRO 100 UNIT/1 ML 3ML VIAL SQ SCH ×3 (10:26→17:40)
[2021-04-01 11:03] VITALS: BP 152/74
[2021-04-01] MEDS ORDERED: CLOPIDOGREL BISULFATE 75 MG TAB PO SCH (12:00)
[2021-04-01 13:15] VITALS: BP 146/89
[2021-04-01] MEDS ORDERED: METHYLPHENIDATE HCL 10 MG TAB PO SCH (17:00)
[2021-04-01] MEDS ORDERED: GABAPENTIN 300 MG CAP PO SCH (17:00)
[2021-04-01 18:16] VITALS: BP 159/75
[2021-04-02] MEDS ORDERED: AMANTADINE HCL 100 MG CAP PO SCH (09:00)
== END 2021-04-01 20:42 | disposition short-term general hospital (02) | DRG 253 ==
LOC: ER 12:30 → ERHOLD 13:53 → MED/SURG2 18:10
PROVIDERS: ADMIT Internal Medicine; ATTEND Internal Medicine
PROC: 02HV33Z Insertion of Infusion Device into Superior Vena Cava, Percutaneous Approach (ICD-10-PCS; 2021-03-15)
PROC: 0D20XUZ Change Feeding Device in Upper Intestinal Tract, External Approach (ICD-10-PCS; 2021-03-15)
PROC: 047K3Z1 Dilation of Right Femoral Artery using Drug-Coated Balloon, Percutaneous Approach (ICD-10-PCS; 2021-03-18)
PROC: 047M3Z1 Dilation of Right Popliteal Artery using Drug-Coated Balloon, Percutaneous Approach (ICD-10-PCS; 2021-03-18)
PROC: 0JBQ0ZZ Excision of Right Foot Subcutaneous Tissue and Fascia, Open Approach (ICD-10-PCS; 2021-03-19)
PROC: 0QBN0ZZ Excision of Right Metatarsal, Open Approach (ICD-10-PCS; 2021-03-21)
PROC: 0KBV0ZZ Excision of Right Foot Muscle, Open Approach (ICD-10-PCS; principal; 2021-03-21 07:00)
DX: E11.52 Type 2 diabetes mellitus with diabetic peripheral angiopathy with gangrene (principal); D69.3 Immune thrombocytopenic purpura; F05 Delirium due to known physiological condition; K94.23 Gastrostomy malfunction; M86.171 Other acute osteomyelitis, right ankle and foot; L97.414 Non-pressure chronic ulcer of right heel and midfoot with necrosis of bone; I70.261 Atherosclerosis of native arteries of extremities with gangrene, right leg; G93.49 Other encephalopathy; F03.91 Unspecified dementia, unspecified severity, with behavioral disturbance; E11.69 Type 2 diabetes mellitus with other specified complication; E11.22 Type 2 diabetes mellitus with diabetic chronic kidney disease; E11.42 Type 2 diabetes mellitus with diabetic polyneuropathy; Z79.82 Long term (current) use of aspirin; Z79.4 Long term (current) use of insulin; Z87.442 Personal history of urinary calculi; E78.5 Hyperlipidemia, unspecified; Z95.5 Presence of coronary angioplasty implant and graft; Z83.3 Family history of diabetes mellitus; Z82.49 Family history of ischemic heart disease and other diseases of the circulatory system; I69.30 Unspecified sequelae of cerebral infarction; G60.8 Other hereditary and idiopathic neuropathies; Z87.891 Personal history of nicotine dependence; L97.513 Non-pressure chronic ulcer of other part of right foot with necrosis of muscle; E11.621 Type 2 diabetes mellitus with foot ulcer; Z96.0 Presence of urogenital implants; N18.30 Chronic kidney disease, stage 3 unspecified; D64.9 Anemia, unspecified; B95.62 Methicillin resistant Staphylococcus aureus infection as the cause of diseases classified elsewhere; B95.2 Enterococcus as the cause of diseases classified elsewhere; E66.9 Obesity, unspecified; Z68.26 Body mass index [BMI] 26.0-26.9, adult
CPT/HCPCS: 36247; 36415; 36569; 37224; 70450; 71045; 75710; 76770; 80053; 80202; 82550; 82553; 82607; 82948; 83540; 83605; 83735; 84466; 84484; 85025; 85610; 85730; 87040; 87071; 87075; 87186; 87205; 93005; 93880; 93925; 99152; 99153; 99251; 99284; C1760; C1769; C1894; C2623; J0461; J0583; J0720; J1756; J2001; J2060; J2250; J2405; J3010; J3370; J7030; J7050; Q9967; U0002